=== PATIENT | male | born 1950 | race Caucasian/White ===

== ENCOUNTER 2019-07-14 15:42 | IRF | payer MEDICARE, OTHER, SELFPAY ==
[2019-07-14 15:45] VITALS: BP 135/48; PULSE 82; RESP 18; TEMP 37.1; O2SAT 100; BMI 28.8
[2019-07-14 17:01] LABS: Glucose Point of Care 164 (65-105)
--- NOTE | 2019-07-14 18:43 | ADMGEN ---
Arrived at 1545 via ambulance. This patient, Nahun Soto, was admitted to [facility] Room 220-01. Patient/family oriented to hospital policies and general routines including ID bracelet, bed and alarms, visiting hours, pain management, procedures, bathroom and other care routines, personal items, smoking policy, room service/diet, and visiting hours. Valuables list has been completed. Information on how to activate the Rapid Response Team has been discussed. Patient/Family are encouraged to report perceived risks to care and to ask questions if they do not understand what they are told or what they should do.
[2019-07-14 19:36] VITALS: BMI 28.8
[2019-07-14] MEDS: ATORVASTATIN 20 MG TABLET PO (20:47)
[2019-07-14] MEDS: INSULIN GLARGINE (*BKC) 100 UNITS/ML 8 UNITS SUB-Q (20:47)
[2019-07-14] MEDS: ASPIRIN 81 MG ENTERIC TABLET PO (20:47)
[2019-07-14 21:14] LABS: Glucose Point of Care 166 (65-105)
[2019-07-14 21:42] VITALS: BP 125/57; PULSE 67; RESP 20; TEMP 36.9; O2SAT 100
[2019-07-14] MEDS: ACETAMINOPHEN 325 MG TABLET 650 MG PO (21:59)
[2019-07-15 04:59] LABS: Basophils Percent Auto 0.4 % (0.2-1.2); Eosinophils Absolute Auto 0.2 K/mm3 (0-0.3); Eosinophils Percent Auto 2.5 % (0-4.4); Hematocrit 26.8 % (42.0-52.0); Hemoglobin 8.3 g/dL (14.0-18.0); Immature Granulocyte Absolute 0.16 K/mm3 (0.00-0.031); Immature Granulocyte Percent A 2.1 % (0-0.5); Lymphocytes Absolute Auto 0.65 K/mm3 (0.9-3.2); Lymphocytes Percent Auto 8.4 % (18.3-44.2); Mean Corpuscular Hemoglobin 28.3 pg (26-34); Mean Corpuscular Volume 91.5 fl (80-100); Mean Platelet Volume 10.5 fl (7.4-10.4); Monocytes Absolute Auto 0.9 K/mm3 (0.1-0.6); Monocytes Percent Auto 11.3 % (2.6-8.5); Neutrophils Absolute Auto 5.8 K/mm3 (1.3-6.7); Neutrophils Percent Auto 75.3 % (45.5-73.1); Platelet Count Result 221 k/mm3 (150-375); Red Blood Count 2.93 M/mm3 (4.6-6.20); Red Cell Distribution Width 16.4 % (11.5-14.5); White Blood Count 7.7 K/mm3 (4.5-10.0)
[2019-07-15 05:18] LABS: Blood Urea Nitrogen 38 mg/dL (9-20); Calcium 8.1 mg/dL (8.4-10.2); Carbon Dioxide 32 mmol/L (22-30); Chloride 90 mmol/L (98-107); Estimated CRCL calculation 9 ml/min; Estimated Glomerular Filt Rate 7; Glucose 128 mg/dL (75-110); Potassium 4.4 mmol/L (3.4-5.0); Sodium 134 mmol/L (137-145)
[2019-07-15 06:00] VITALS: BP 126/54; PULSE 64; RESP 16; TEMP 36.5; O2SAT 99
[2019-07-15] MEDS: FUROSEMIDE 80 MG TABLET 160 MG PO ×3 (06:07→17:42)
[2019-07-15] MEDS: ACETAMINOPHEN 325 MG TABLET 650 MG PO ×4 (06:40→23:01)
[2019-07-15 06:51] LABS: Glucose Point of Care 125 (65-105)
[2019-07-15 07:03] LABS: Hemoglobin A1C 6.9 % (<5.7)
[2019-07-15] MEDS: CALCIUM CARBONATE (TUMS) 500 MG (200 MG ELEMENTAL) PO ×3 (09:02→17:40)
[2019-07-15] MEDS: INSULIN ASPART (*BKC) 100 UNITS/ML SUB-Q ×3 (09:03→17:40)
[2019-07-15] MEDS: SEVELAMER CARBONATE 800 MG TABLET PO ×3 (09:05→17:42)
[2019-07-15] MEDS: allopurinoL 100 MG TABLET PO (09:05)
[2019-07-15 09:06] VITALS: PULSE 64
[2019-07-15] MEDS: AMLODIPINE BESYLATE 5 MG TABLET 10 MG PO (09:06)
[2019-07-15] MEDS: CHOLECALCIFEROL 1,000 UNIT TABLET 1000 UNITS PO (09:06)
[2019-07-15] MEDS: CYANOCOBALAMIN 1,000 MCG TABLET 1000 MCG PO (09:06)
[2019-07-15] MEDS: lisinopriL 5 MG TABLET PO (09:06)
[2019-07-15] MEDS: METOPROLOL SUCCINATE EXT REL 100 MG TABCR 200 MG PO (09:06)
[2019-07-15] MEDS: PYRIDOXINE HCL 50 MG TABLET 100 MG PO (09:07)
[2019-07-15] MEDS: VITAMIN E 400 UNIT CAPSULE PO (09:07)
[2019-07-15] MEDS: PREGABALIN 50 MG CAPSULE 100 MG PO ×3 (09:10→17:41)
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
[2019-07-15 12:10] LABS: Glucose Point of Care 128 (65-105)
[2019-07-15] MEDS: HEPARIN SODIUM 5,000 UNITS/ML VIAL 5000 UNITS SUB-Q ×2 (12:56→20:30)
[2019-07-15 13:57] LABS: Iron 29 ug/dL (49-181); Percent Iron Saturation 13 % (20-50)
[2019-07-15 14:00] VITALS: BP 130/50; PULSE 66; RESP 20; TEMP 36.6; O2SAT 100
[2019-07-15 14:18] VITALS: BMI 28.8
--- NOTE | 2019-07-15 16:14 | PCCCNOTE ---
On 07/15/19, the student, [ Darrin Polanco ], provided care and completed [facility] documentation on this patient. I have reviewed the student's documentation and agree with the findings.
[2019-07-15 17:11] LABS: Glucose Point of Care 123 (65-105)
[2019-07-15] MEDS: MELATONIN 5 MG TABLET PO (20:30)
[2019-07-15] MEDS: ATORVASTATIN 20 MG TABLET PO (20:30)
[2019-07-15] MEDS: ASPIRIN 81 MG ENTERIC TABLET PO (20:30)
[2019-07-15] MEDS: INSULIN GLARGINE (*BKC) 100 UNITS/ML 8 UNITS SUB-Q (20:34)
[2019-07-15 20:51] LABS: Glucose Point of Care 130 (65-105)
[2019-07-15 21:46] VITALS: BP 132/50; PULSE 70; RESP 18; TEMP 36.9; O2SAT 98
[2019-07-16] VITALS (22 sets, daily range): BP systolic 126–156; BP diastolic 49–68; PULSE 59–77; RESP 16–20; TEMP 36.2–37.1; O2SAT 93–98
[2019-07-16 04:59] LABS: Basophils Percent Auto 0.5 % (0.2-1.2); Eosinophils Absolute Auto 0.2 K/mm3 (0-0.3); Eosinophils Percent Auto 2.9 % (0-4.4); Hematocrit 26.9 % (42.0-52.0); Hemoglobin 8.2 g/dL (14.0-18.0); Immature Granulocyte Percent A 2.5 % (0-0.5); Lymphocytes Absolute Auto 0.84 K/mm3 (0.9-3.2); Lymphocytes Percent Auto 10.3 % (18.3-44.2); Mean Corpuscular HGB Conc 30.5 g/dl (32-36); Mean Corpuscular Hemoglobin 28.3 pg (26-34); Mean Corpuscular Volume 92.8 fl (80-100); Mean Platelet Volume 10.7 fl (7.4-10.4); Monocytes Absolute Auto 0.8 K/mm3 (0.1-0.6); Monocytes Percent Auto 9.7 % (2.6-8.5); Neutrophils Percent Auto 74.1 % (45.5-73.1); Platelet Count Result 232 k/mm3 (150-375); Red Cell Distribution Width 16.3 % (11.5-14.5); White Blood Count 8.1 K/mm3 (4.5-10.0)
[2019-07-16 05:41] LABS: Hepatitis B Surface Antigen Negative (Negative)
[2019-07-16 05:46] LABS: Albumin Level 3.4 g/dL (3.5-5.1); Blood Urea Nitrogen 55 mg/dL (9-20); Calcium 8.5 mg/dL (8.4-10.2); Carbon Dioxide 28 mmol/L (22-30); Chloride 89 mmol/L (98-107); Estimated CRCL calculation 8 ml/min; Estimated Glomerular Filt Rate 6; Glucose 125 mg/dL (75-110); Phosphorus 7.6 mg/dL (2.5-4.5); Potassium 4.3 mmol/L (3.4-5.0); Sodium 134 mmol/L (137-145)
[2019-07-16 06:11] LABS: Glucose Point of Care 119 (65-105)
[2019-07-16 06:12] LABS: Hepatitis B Surface Anti Res Positive
[2019-07-16] MEDS: ACETAMINOPHEN 325 MG TABLET 650 MG PO ×2 (07:21→13:11)
[2019-07-16] MEDS: AMLODIPINE BESYLATE 5 MG TABLET 10 MG PO (08:36)
[2019-07-16] MEDS: CYANOCOBALAMIN 1,000 MCG TABLET 1000 MCG PO (08:37)
[2019-07-16] MEDS: CALCIUM CARBONATE (TUMS) 500 MG (200 MG ELEMENTAL) PO ×3 (08:37→18:49)
[2019-07-16] MEDS: PYRIDOXINE HCL 50 MG TABLET 100 MG PO (08:37)
[2019-07-16] MEDS: SEVELAMER CARBONATE 800 MG TABLET PO ×3 (08:37→18:46)
[2019-07-16] MEDS: lisinopriL 5 MG TABLET PO (08:37)
[2019-07-16] MEDS: METOPROLOL SUCCINATE EXT REL 100 MG TABCR 200 MG PO (08:37)
[2019-07-16] MEDS: VITAMIN E 400 UNIT CAPSULE PO (08:37)
[2019-07-16] MEDS: PREGABALIN 50 MG CAPSULE 100 MG PO ×3 (08:37→18:45)
[2019-07-16] MEDS: allopurinoL 100 MG TABLET PO (08:37)
[2019-07-16] MEDS: CHOLECALCIFEROL 1,000 UNIT TABLET 1000 UNITS PO (08:38)
[2019-07-16] MEDS: INSULIN ASPART (*BKC) 100 UNITS/ML SUB-Q ×3 (08:40→18:48)
[2019-07-16] MEDS: HEPARIN SODIUM 5,000 UNITS/ML VIAL 5000 UNITS SUB-Q ×2 (09:00→20:04)
[2019-07-16 11:25] LABS: Glucose Point of Care 173 (65-105)
--- NOTE | 2019-07-16 13:17 | RPD ---
INDIVIDUALIZED PLAN OF CARE FOR Nahun Soto Brief Synthesis of Pre-Admission Screen, Post-Admission Evaluation and Therapy Evaluations: The patient presents to rehab with gangrenous right foot. Comorbidities include status post right below-knee amputation, end-stage renal disease on hemodialysis, hypertension, hyperlipidemia, anemia of chronic disease, acute postoperative pain. The patient requires physician services for medical oversight, management of post-op complications in the setting of present comorbidities, management diabetes mellitus, end-stage renal disease and pain management. Post-op complications have included acute blood loss anemia and postoperative pain. The patient requires nursing services for anticoagulation therapy, diabetes training, DVT prophylactics, infection protection, medication management and education, pressure relief, and wound care. Deficits include:ADLs, Balance, Endurance, Mobility, Pain Management, ROM, Safety, Strength,Transfers Video Rental Clerk/Case Management for: Discharge Planning and Patient/Family Counseling Physical Therapy: 5 days per week for 90 minutes. Treatments may include: Therapeutic Exercise, Gait Training, Neuromuscular Re-education, Transfer Training, Community Reintegration, Bed Mobility, Patient/Family Education, Wheelchair Mobility Group Therapy/Concurrent Therapy Rationales: -Improve attention span during functional activities in a distracted environment. -Enhance problem solving and/or adequate judgment skills during functional activities in a distracted environment. -Promote increased safety awareness in a distracted environment to reduce fall risk with functional tasks, transfers, and ambulation to allow a more safe, self-sufficient return to the home environment. -Improve dynamic balance skills to promote safety and independence with functional activities in a distracted environment for maximum gain. Occupational Therapy: 5 days per week for 90 minutes. Treatments may include: Therapeutic Exercise, Therapeutic Activity, Cognitive Training, Self-Care Transfer Training, Community Reintegration, Home Management, Patient/Family Education, Wheelchair Mobility Training, Energy Conservation Training Group Therapy/Concurrent Therapy Rationales: -Allow therapist to observe and teach generalization and carry-over of skills learned in individual therapy. -Enhance problem solving and sequencing skills during therapeutic activities in a distracted environment. -Promote increased safety awareness in a realistic setting to reduce fall risk with functional tasks due to visual and verbal distractions. -Increase functional level with ADLs, ADL transfers and use of adaptive equipment through therapeutic activities with others while promoting safety to allow a more safe, self-sufficient return home. Medical Prognosis: Good Anticipated Length of Stay: 12 days Rehab Goals: Oral Hygiene Goal: 06-Independent Toileting Hygiene Goal: 04-Supervision or Touching Assistance Shower/Bathe Self Goal: 06-Independent Upper Body Dressing Goal: 06-Independent Lower Body Dressing Goal: 04-Supervision or Touching Assistance Putting On/Taking Off Footwear Goal: 09-Not Applicable Rolling Left and Right Goal: 06-Independent Sit to Lying Goal: 06-Independent Lying to Sitting on Side of Bed Goal: 06-Independent Sit to Stand Goal: 04-Supervision or Touching Assistance Chair/Kpe-wo-Hsfeq Transfer Goal: 06-Independent Toilet Transfer Goal: 06-Independent Car Transfer Goal: 05-Setup or Clean Up Assistance Walk 10' Goal: 09-Not Applicable Walk 50' with Two Turns Goal: 09-Not Applicable Walk 150' Goal: 09-Not Applicable Walk 10' on Uneven Surface Goal: 09-Not Applicable 1 Step (Curb) Goal: 09-Not Applicable 4 Steps Goal: 09-Not Applicable 12 Steps Goal Score: 09-Not Applicable Picking Up Object Goal: 04-Supervision or Touching Assistance Wheel 50' with Two Turns Score: 06-Independent Wheel 150' Goal: 06-Independent Anticipa
--- NOTE | 2019-07-16 13:31 | WPDNEURORHBP ---
Subjective Date/time seen: 07/16/19 13:31 Interval history: patient is here because of right BKA and has already had left BKA for which he has a prosthesis he is doing fairly well in over rehab and stable making progress does not have any complaints per like headache chest pain shortness of breath nausea vomiting etc Review of Systems Review of Systems: All systems reviewed & are unremarkable except as noted in HPI and below Exam Const: General: comfortable and no acute distress HENMT: Other: normal exam Eyes: General: appearance normal, both eyes and all related structures Neck: Neck: supple and no JVD Resp: Effort & Inspection: normal respiratory effort Auscultation: clear to auscultation bilaterally Cardio: Rate: regular rate Rhythm: regular rhythm GI: GI Palp: Yes Soft to palpation Auscultation: normal bowel sounds Skin: General skin exam: normal color and no rashes or lesions noted Neuro: Other: patient overall status is improving the BKA site on the right is clean no significant drainage is noted left-sided prosthesis is working fairly well he does have evidence of peripheral neuropathy even in the upper extremities needs stents in the all activities of daily Extrem: Other: right BKA and Old BKA left using prosthesis Psych: Mental Status: mental status grossly normal Objective Data Vital Signs Vital Signs: Vital Signs - 24 hr 07/15/19 14:00 07/15/19 21:46 07/16/19 06:00 Temperature 36.6 C 36.9 C 36.2 C L Pulse Rate 66 70 62 Respiratory Rate 20 18 18 Blood Pressure 130/50 L 132/50 L 126/49 L Pulse Oximetry 100 98 94 07/16/19 08:37 Temperature Pulse Rate 62 Respiratory Rate Blood Pressure Pulse Oximetry Intake/Output Intake/Output: Intake & Output 07/13/19 07/14/19 07/15/19 07/16/19 23:59 23:59 23:59 23:59 Intake Total 240 720 600 Balance 240 720 600 Meds/Results Medications: Active Medications Generic Name Dose Route Start Last Admin Trade Name Freq PRN Reason Stop Dose Admin Acetaminophen 650 mg 07/14/19 18:22 07/16/19 13:11 Tylenol Tablet PO 650 mg Q4H PRN Administration Pain (Scale Score 1-3) Hydrocodone Bitart/Acetaminophen 1 tab 07/14/19 18:22 [place] 5-325 Mg PO Q4H PRN Pain, Moderate Allopurinol 100 mg 07/15/19 09:00 07/16/19 08:37 Zyloprim PO 100 mg DAILY EDUARD Administration Amlodipine Besylate 10 mg 07/15/19 09:00 07/16/19 08:36 Norvasc PO 10 mg DAILY EDUARD Administration Aspirin 81 mg 07/14/19 21:00 07/15/19 20:30 Aspirin Ec PO 81 mg HS EDUARD Administration Atorvastatin Calcium 20 mg 07/14/19 21:00 07/15/19 20:30 Lipitor PO 20 mg HS EDUARD Administration Calcium Carbonate 200 mg 07/15/19 08:00 07/16/19 11:51 Tums PO 200 mg TIDWM EDUARD Administration Cyanocobalamin 1,000 mcg 07/15/19 09:00 07/16/19 08:37 Vitamin B-12 Tab PO 1,000 mcg DAILY EDUARD Administration Dextrose 12.5 gm 07/14/19 16:07 Dextrose 50% Syringe IV PUSH PRN PRN Hypoglycemia Protocol Furosemide 160 mg 07/15/19 06:00 07/15/19 17:42 Lasix Tablet PO 160 mg TuTh@0600,1200,1800 EDUARD Administration Glucagon 1 mg 07/14/19 16:07 Glucagon For Inj IM PRN PRN Hypoglycemia Protocol Glucose 15 gm 07/14/19 16:07 Glutose 15 PO PRN PRN Hypoglycemia Protocol Heparin Sodium (Porcine) 5,000 units 07/15/19 11:30 07/15/19 20:30 Heparin Sodium SUB-Q 5,000 units Q12HR EDUARD Administration Dextrose 1,000 mls @ 100 mls/hr 07/14/19 16:07 Dextrose 5% 1,000 Ml IVPB PRN PRN Hypoglycemia Protocol Insulin Aspart 2 units 07/15/19 08:00 07/16/19 11:52 Novolog SUB-Q 2 units TIDWM EDUARD Administration Insulin Aspart 2 - 5 units 07/14/19 17:00 07/16/19 11:52 Novolog SUB-Q Not Given TIDWM [facility] Protocol Insulin Glargine 8 units 07/14/19 21:00 07/15/19 20:34 Lantus SUB-Q 8 units HS
[2019-07-16] MEDS: EPOETIN ALFA 10,000 UNITS/ML VIAL 10000 UNITS IV PUSH (16:50)
--- NOTE | 2019-07-16 17:30 | PM.PNNEP ---
Progress Note: A&P Assessment and Plan (1) ESRD (end stage renal disease): Code(s): N18.6 - End stage renal disease Status: Acute Assessment and Plan: The patient is on dialysis now. We will remove the 2L. (2) Essential (primary) hypertension: Code(s): I10 - Essential (primary) hypertension Status: Acute Assessment and Plan: Blood pressure is under good control. (3) Erythropoietin deficiency anemia: Code(s): D63.1 - Anemia in chronic kidney disease Status: Acute Assessment and Plan: Hemoglobin is 8.3. Continue EPO 10,000. (4) Peripheral vascular disease: Code(s): I73.9 - Peripheral vascular disease, unspecified Status: Acute Assessment and Plan: Status post ytudj-weg-tvsl amputation. Subjective Date/time seen: 07/16/19 17:30 Interval history: Patient is feeling okay. No chest pain or shortness of breath. He is on dialysis right now and tolerating it well. His blood pressure is about 140. We are removing about 2L head of fluid. He was seen at 4:30 p.m. Review of Systems Cardiovascular: Cardiovascular: Reports no additional cardiovascular complaints Respiratory: Respiratory: Reports no additional respiratory complaints Gastrointestinal: Gastrointestinal: Reports no additional gastrointestinal complaints Genitourinary: Genitourinary: Reports no additional male genitourinary complaints Exam Narrative: Exam Narrative: Well developed well-nourished in no acute distress Lungs clear Heart regular without rub Abdomen bowel sounds positive soft nontender Extremities no edema Skin no rash Objective Data Vital Signs Vital Signs: Vital Signs - 24 hr 07/15/19 21:46 07/16/19 06:00 07/16/19 08:37 Temperature 36.9 C 36.2 C L Pulse Rate 70 62 62 Respiratory Rate 18 18 Blood Pressure 132/50 L 126/49 L Pulse Oximetry 98 94 07/16/19 14:00 07/16/19 14:31 07/16/19 14:44 Temperature 36.4 C 36.6 C Pulse Rate 68 64 59 L Respiratory Rate 20 18 Blood Pressure 128/56 L 140/65 142/59 H Pulse Oximetry 98 07/16/19 15:00 07/16/19 15:15 07/16/19 15:30 Temperature Pulse Rate 60 61 59 L Respiratory Rate Blood Pressure 138/63 136/62 138/63 Pulse Oximetry 07/16/19 15:45 07/16/19 16:00 07/16/19 16:15 Temperature Pulse Rate 59 L 60 62 Respiratory Rate Blood Pressure 138/61 144/63 H 139/62 Pulse Oximetry 07/16/19 16:30 07/16/19 16:45 07/16/19 17:00 Temperature Pulse Rate 63 64 61 Respiratory Rate Blood Pressure 144/68 H 151/68 H 155/68 H Pulse Oximetry 07/16/19 17:15 Temperature Pulse Rate 64 Respiratory Rate Blood Pressure 154/62 H Pulse Oximetry Intake/Output Intake/Output: Intake & Output 07/13/19 07/14/19 07/15/19 07/16/19 23:59 23:59 23:59 23:59 Intake Total 240 720 600 Balance 240 720 600 Meds/Results Medications: Active Medications Generic Name Dose Route Start Last Admin Trade Name Freq PRN Reason Stop Dose Admin Acetaminophen 650 mg 07/14/19 18:22 07/16/19 13:11 Tylenol Tablet PO 650 mg Q4H PRN Administration Pain (Scale Score 1-3) Hydrocodone Bitart/Acetaminophen 1 tab 07/14/19 18:22 [place] 5-325 Mg PO Q4H PRN Pain, Moderate Allopurinol 100 mg 07/15/19 09:00 07/16/19 08:37 Zyloprim PO 100 mg DAILY EDUARD Administration Amlodipine Besylate 10 mg 07/15/19 09:00 07/16/19 08:36 Norvasc PO 10 mg DAILY EDUARD Administration Aspirin 81 mg 07/14/19 21:00 07/15/19 20:30 Aspirin Ec PO 81 mg HS EDUARD Administration Atorvastatin Calcium 20 mg 07/14/19 21:00 07/15/19 20:30 Lipitor PO 20 mg HS EDUARD Administration Calcium Carbonate 200 mg 07/15/19 08:00 07/16/19 11:51 Tums PO 200 mg TIDWM EDUARD Administration Cyanocobalamin 1,000 mcg 07/15/19 09:00 07/16/19 08:37 Vitamin B-12 Tab PO 1,000 mcg DAILY EDUARD Administration Dextrose 12.5 gm 07/14/19 16:07
[2019-07-16 18:51] LABS: Glucose Point of Care 101 (65-105)
[2019-07-16] MEDS: ASPIRIN 81 MG ENTERIC TABLET PO (20:04)
[2019-07-16] MEDS: ATORVASTATIN 20 MG TABLET PO (20:04)
[2019-07-16] MEDS: MELATONIN 5 MG TABLET PO (20:04)
[2019-07-16] MEDS: INSULIN GLARGINE (*BKC) 100 UNITS/ML 8 UNITS SUB-Q (20:31)
[2019-07-16 20:39] LABS: Glucose Point of Care 195 (65-105)
[2019-07-17 04:53] LABS: Basophils Percent Auto 0.5 % (0.2-1.2); Eosinophils Absolute Auto 0.2 K/mm3 (0-0.3); Eosinophils Percent Auto 2.1 % (0-4.4); Hematocrit 26.5 % (42.0-52.0); Hemoglobin 8.2 g/dL (14.0-18.0); Immature Granulocyte Absolute 0.31 K/mm3 (0.00-0.031); Immature Granulocyte Percent A 3.8 % (0-0.5); Lymphocytes Absolute Auto 0.75 K/mm3 (0.9-3.2); Lymphocytes Percent Auto 9.2 % (18.3-44.2); Mean Corpuscular HGB Conc 30.9 g/dl (32-36); Mean Corpuscular Hemoglobin 28.4 pg (26-34); Mean Corpuscular Volume 91.7 fl (80-100); Mean Platelet Volume 9.9 fl (7.4-10.4); Monocytes Absolute Auto 0.7 K/mm3 (0.1-0.6); Monocytes Percent Auto 9.1 % (2.6-8.5); Neutrophils Absolute Auto 6.1 K/mm3 (1.3-6.7); Neutrophils Percent Auto 75.3 % (45.5-73.1); Platelet Count Result 224 k/mm3 (150-375); Red Blood Count 2.89 M/mm3 (4.6-6.20); Red Cell Distribution Width 16.1 % (11.5-14.5); White Blood Count 8.1 K/mm3 (4.5-10.0)
[2019-07-17 05:18] LABS: Albumin Level 3.5 g/dL (3.5-5.1); Blood Urea Nitrogen 28 mg/dL (9-20); Calcium 8.7 mg/dL (8.4-10.2); Carbon Dioxide 32 mmol/L (22-30); Chloride 92 mmol/L (98-107); Estimated CRCL calculation 12 ml/min; Estimated Glomerular Filt Rate 10; Glucose 137 mg/dL (75-110); Phosphorus 4.8 mg/dL (2.5-4.5); Potassium 4.3 mmol/L (3.4-5.0); Sodium 135 mmol/L (137-145)
[2019-07-17] MEDS: FUROSEMIDE 80 MG TABLET 160 MG PO ×3 (05:48→17:01)
[2019-07-17 06:00] VITALS: BP 148/62; PULSE 72; RESP 18; TEMP 36.8; O2SAT 98
[2019-07-17 06:14] LABS: Glucose Point of Care 130 (65-105)
--- NOTE | 2019-07-17 07:53 | PCPTNOTE ---
Received orders for stump turnstile attendant and stump protector. physical therapist contacted oyster shucker.
[2019-07-17] MEDS: AMLODIPINE BESYLATE 5 MG TABLET 10 MG PO (09:14)
[2019-07-17] MEDS: SEVELAMER CARBONATE 800 MG TABLET PO ×2 (09:14→12:04)
[2019-07-17] MEDS: PREGABALIN 50 MG CAPSULE 100 MG PO ×3 (09:14→17:01)
[2019-07-17] MEDS: lisinopriL 5 MG TABLET PO (09:14)
[2019-07-17] MEDS: VITAMIN E 400 UNIT CAPSULE PO (09:14)
[2019-07-17] MEDS: allopurinoL 100 MG TABLET PO (09:14)
[2019-07-17] MEDS: HEPARIN SODIUM 5,000 UNITS/ML VIAL 5000 UNITS SUB-Q ×2 (09:14→20:11)
[2019-07-17 09:15] VITALS: PULSE 72
[2019-07-17] MEDS: CALCIUM CARBONATE (TUMS) 500 MG (200 MG ELEMENTAL) PO ×3 (09:15→17:01)
[2019-07-17] MEDS: METOPROLOL SUCCINATE EXT REL 100 MG TABCR 200 MG PO (09:15)
[2019-07-17] MEDS: PYRIDOXINE HCL 50 MG TABLET 100 MG PO (09:15)
[2019-07-17] MEDS: CHOLECALCIFEROL 1,000 UNIT TABLET 1000 UNITS PO (09:15)
[2019-07-17] MEDS: INSULIN ASPART (*BKC) 100 UNITS/ML SUB-Q ×3 (09:15→16:59)
[2019-07-17] MEDS: CYANOCOBALAMIN 1,000 MCG TABLET 1000 MCG PO (09:15)
--- NOTE | 2019-07-17 11:55 | WPDNEURORHBP ---
Subjective Date/time seen: 07/17/19 11:55 Interval history: patient with the right BKA and overt left BKA with which she has a prosthesis doing fairly well and moving in the therapy days a little drainage on the right below the amputation stump no sign of infection or wound dehiscence Patient denies any headache chest pain shortness of breath fever or chills Review of Systems Review of Systems: All systems reviewed & are unremarkable except as noted in HPI and below Exam Const: General: comfortable and no acute distress HENMT: General nose exam: Normal nares present Mouth: Yes moist mucous membranes Eyes: General: appearance normal, both eyes and all related structures Neck: Neck: supple and no JVD Resp: Effort & Inspection: normal respiratory effort Auscultation: clear to auscultation bilaterally Cardio: Rate: regular rate Rhythm: regular rhythm GI: GI Palp: Yes Soft to palpation Auscultation: normal bowel sounds Skin: General skin exam: normal color and no rashes or lesions noted Other: the stump of of the right BKA is clean and healthy no significant drainage noted and no sign of infection Neuro: Other: patient's because of having bilateral BKA is handicapped however doing fairly well and improving in the physical therapy and occupational therapy activities of daily living he does have evidence of peripheral neuropathy in the upper extremities but doing well Extrem: Other: bilateral BKA the right when is the new 1 Objective Data Vital Signs Vital Signs: Vital Signs - 24 hr 07/16/19 14:00 07/16/19 14:31 07/16/19 14:44 Temperature 36.4 C 36.6 C Pulse Rate 68 64 59 L Respiratory Rate 20 18 Blood Pressure 128/56 L 140/65 142/59 H Pulse Oximetry 98 07/16/19 15:00 07/16/19 15:15 07/16/19 15:30 Temperature Pulse Rate 60 61 59 L Respiratory Rate Blood Pressure 138/63 136/62 138/63 Pulse Oximetry 07/16/19 15:45 07/16/19 16:00 07/16/19 16:15 Temperature Pulse Rate 59 L 60 62 Respiratory Rate Blood Pressure 138/61 144/63 H 139/62 Pulse Oximetry 07/16/19 16:30 07/16/19 16:45 07/16/19 17:00 Temperature Pulse Rate 63 64 61 Respiratory Rate Blood Pressure 144/68 H 151/68 H 155/68 H Pulse Oximetry 07/16/19 17:15 07/16/19 17:30 07/16/19 17:45 Temperature Pulse Rate 64 64 62 Respiratory Rate Blood Pressure 154/62 H 154/67 H 155/68 H Pulse Oximetry 07/16/19 18:00 07/16/19 18:14 07/16/19 18:20 Temperature 36.6 C Pulse Rate 62 63 64 Respiratory Rate 16 Blood Pressure 147/66 H 149/58 H 156/58 H Pulse Oximetry 07/16/19 22:00 07/17/19 06:00 07/17/19 09:15 Temperature 37.1 C 36.8 C Pulse Rate 77 72 72 Respiratory Rate 18 18 Blood Pressure 143/54 H 148/62 H Pulse Oximetry 93 98 Intake/Output Intake/Output: Intake & Output 07/14/19 07/15/19 07/16/19 07/17/19 23:59 23:59 23:59 23:59 Intake Total 240 720 600 240 Output Total 2000 Balance 240 720 -1400 240 Meds/Results Medications: Active Medications Generic Name Dose Route Start Last Admin Trade Name Freq PRN Reason Stop Dose Admin Acetaminophen 650 mg 07/14/19 18:22 07/16/19 13:11 Tylenol Tablet PO 650 mg Q4H PRN Administration Pain (Scale Score 1-3) Hydrocodone Bitart/Acetaminophen 1 tab 07/14/19 18:22 07/17/19 05:50 [place] 5-325 Mg PO 1 tab Q4H PRN Administration Pain, Moderate Allopurinol 100 mg 07/15/19 09:00 07/17/19 09:14 Zyloprim PO 100 mg DAILY EDUARD Administration Amlodipine Besylate 10 mg 07/15/19 09:00 07/17/19 09:14 Norvasc PO 10 mg DAILY EDUARD Administration Aspirin 81 mg 07/14/19 21:00 07/16/19 20:04 Aspirin Ec PO 81 mg HS EDUARD Administration Atorvastatin Calcium 20 mg 07/14/19 21:00 07/16/19 20:04 Lipitor PO 20 mg HS EDUARD Administration Calcium Carbonate 200 mg 07/15/19 08:00 07/17/19 09:15 Tums PO 200 mg TIDWM EDUARD Administration Cyanocobalamin 1,000
[2019-07-17] MEDS: ACETAMINOPHEN 325 MG TABLET 650 MG PO (12:52)
--- NOTE | 2019-07-17 13:14 | PCPTNOTE ---
Nahun Soto was evaluated for a slide board on 07/17/2019 by this physical therapist assistant plant control operator The slide board will resolve patient's mobility limitations and will be used for ADL's within the home. The patient can safely use the slide board. ?The slide board will resolve the patient?s mobility deficits, including non weight bearing right lower extremity, decreased balance and bilateral lower extremity below knee amputee.
[2019-07-17 14:00] VITALS: BP 118/52; PULSE 64; RESP 18; TEMP 36.4; O2SAT 96
[2019-07-17 16:29] LABS: Glucose Point of Care 168 (65-105)
[2019-07-17 16:38] LABS: Glucose Point of Care 189 (65-105)
[2019-07-17] MEDS: MELATONIN 5 MG TABLET PO (20:11)
[2019-07-17] MEDS: ATORVASTATIN 20 MG TABLET PO (20:11)
[2019-07-17] MEDS: ASPIRIN 81 MG ENTERIC TABLET PO (20:11)
[2019-07-17] MEDS: INSULIN GLARGINE (*BKC) 100 UNITS/ML 8 UNITS SUB-Q (20:48)
[2019-07-17 21:42] LABS: Glucose Point of Care 213 (65-105)
[2019-07-17 22:00] VITALS: BP 133/59; PULSE 68; RESP 20; TEMP 36.5; O2SAT 92
[2019-07-18] VITALS (24 sets, daily range): BP systolic 115–183; BP diastolic 47–70; PULSE 57–67; RESP 16–20; TEMP 36.4–37.1; O2SAT 94–98
[2019-07-18 06:31] LABS: Glucose Point of Care 104 (65-105)
[2019-07-18] MEDS: INSULIN ASPART (*BKC) 100 UNITS/ML SUB-Q ×3 (09:10→19:04)
[2019-07-18] MEDS: SEVELAMER CARBONATE 800 MG TABLET PO ×3 (09:10→19:05)
[2019-07-18] MEDS: CALCIUM CARBONATE (TUMS) 500 MG (200 MG ELEMENTAL) PO ×3 (09:10→19:04)
[2019-07-18] MEDS: AMLODIPINE BESYLATE 5 MG TABLET 10 MG PO (09:11)
[2019-07-18] MEDS: allopurinoL 100 MG TABLET PO (09:11)
[2019-07-18] MEDS: HEPARIN SODIUM 5,000 UNITS/ML VIAL 5000 UNITS SUB-Q ×2 (09:11→20:37)
[2019-07-18] MEDS: CHOLECALCIFEROL 1,000 UNIT TABLET 1000 UNITS PO (09:11)
[2019-07-18] MEDS: CYANOCOBALAMIN 1,000 MCG TABLET 1000 MCG PO (09:11)
[2019-07-18] MEDS: METOPROLOL SUCCINATE EXT REL 100 MG TABCR 200 MG PO (09:12)
[2019-07-18] MEDS: VITAMIN E 400 UNIT CAPSULE PO (09:12)
[2019-07-18] MEDS: lisinopriL 5 MG TABLET PO (09:12)
[2019-07-18] MEDS: PYRIDOXINE HCL 50 MG TABLET 100 MG PO (09:12)
[2019-07-18] MEDS: PREGABALIN 50 MG CAPSULE 100 MG PO ×3 (09:13→19:04)
[2019-07-18 12:15] LABS: Glucose Point of Care 81 (65-105)
--- NOTE | 2019-07-18 13:05 | WPDNEURORHBP ---
Subjective Date/time seen: 07/18/19 13:05 Interval history: patient is doing fairly well and moving forward denies any complaints of chest pain shortness of breath nausea vomiting having had the previous BKA he is able to tolerate the right BKA which is new much better than otherwise Review of Systems Review of Systems: All systems reviewed & are unremarkable except as noted in HPI and below Exam Const: General: comfortable and no acute distress HENMT: General nose exam: Normal nares present Mouth: Yes moist mucous membranes Eyes: General: appearance normal, both eyes and all related structures Neck: Neck: supple and no JVD Resp: Effort & Inspection: normal respiratory effort Auscultation: clear to auscultation bilaterally Cardio: Rate: regular rate Rhythm: regular rhythm GI: GI Palp: Yes Soft to palpation Auscultation: normal bowel sounds Skin: General skin exam: normal color and no rashes or lesions noted Neuro: Other: does have evidence of peripheral neuropathy and peripheral vascular disease the new BKA is doing fairly well and he is engage in therapy otherwise no lateralizing focal motor deficits noted Extrem: Other: bilateral BKA along with the evidence of the peripheral neuropathy and also peripheral vascular disease Psych: Mental Status: mental status grossly normal Objective Data Vital Signs Vital Signs: Vital Signs - 24 hr 07/17/19 14:00 07/17/19 22:00 07/18/19 06:00 Temperature 36.4 C L 36.5 C 36.4 C L Pulse Rate 64 68 67 Respiratory Rate 18 20 16 Blood Pressure 118/52 L 133/59 L 157/69 H Pulse Oximetry 96 92 98 07/18/19 09:12 Temperature Pulse Rate 67 Respiratory Rate Blood Pressure Pulse Oximetry Intake/Output Intake/Output: Intake & Output 07/15/19 07/16/19 07/17/19 07/18/19 23:59 23:59 23:59 23:59 Intake Total 720 600 480 200 Output Total 2000 Balance 720 -1400 480 200 Meds/Results Medications: Active Medications Generic Name Dose Route Start Last Admin Trade Name Freq PRN Reason Stop Dose Admin Acetaminophen 650 mg 07/14/19 18:22 07/17/19 12:52 Tylenol Tablet PO 650 mg Q4H PRN Administration Pain (Scale Score 1-3) Hydrocodone Bitart/Acetaminophen 1 tab 07/14/19 18:22 07/18/19 09:24 [place] 5-325 Mg PO 1 tab Q4H PRN Administration Pain, Moderate Allopurinol 100 mg 07/15/19 09:00 07/18/19 09:11 Zyloprim PO 100 mg DAILY EDUARD Administration Amlodipine Besylate 10 mg 07/15/19 09:00 07/18/19 09:11 Norvasc PO 10 mg DAILY EDUARD Administration Aspirin 81 mg 07/14/19 21:00 07/17/19 20:11 Aspirin Ec PO 81 mg HS EDUARD Administration Atorvastatin Calcium 20 mg 07/14/19 21:00 07/17/19 20:11 Lipitor PO 20 mg HS EDUARD Administration Calcium Carbonate 200 mg 07/15/19 08:00 07/18/19 12:42 Tums PO 200 mg TIDWM EDUARD Administration Cyanocobalamin 1,000 mcg 07/15/19 09:00 07/18/19 09:11 Vitamin B-12 Tab PO 1,000 mcg DAILY EDUARD Administration Dextrose 12.5 gm 07/14/19 16:07 Dextrose 50% Syringe IV PUSH PRN PRN Hypoglycemia Protocol Epoetin Adolfo 10,000 units 07/18/19 05:35 Epogen IV PUSH [facility]FR [facility] Furosemide 160 mg 07/15/19 06:00 07/17/19 17:01 Lasix Tablet PO 160 mg TuTh@0600,1200,1800 EDUARD Administration Glucagon 1 mg 07/14/19 16:07 Glucagon For Inj IM PRN PRN Hypoglycemia Protocol Glucose 15 gm 07/14/19 16:07 Glutose 15 PO PRN PRN Hypoglycemia Protocol Heparin Sodium (Porcine) 5,000 units 07/15/19 11:30 07/18/19 09:11 Heparin Sodium SUB-Q 5,000 units Q12HR EDUARD Administration Dextrose 1,000 mls @ 100 mls/hr 07/14/19 16:07 Dextrose 5% 1,000 Ml IVPB PRN PRN Hypoglycemia Protocol Insulin Aspart 2 units 07/15/19 08:00 07/18/19 12:42 Novolog SUB-Q 2 units TIDWM EDUARD Administration Insulin Aspart 2 - 5 units 07/14/19 17:00 07/18/19 12:42 Nov
--- NOTE | 2019-07-18 13:14 | PCPTNOTE ---
Addendum entered by Maty Christensen, ACQUISITION LEAD 07/18/19 15:03: Patient and patient's refused PT due to patient anticipating going down to dialysis at 13:00. PT asked patient if he could work with therapy until dialysis got to the room and patient's reports patient just wants to get in bed and rest until dialysis came and patient reports he was having pain from sitting up and wants to rest until dialysis gets to the room. Checked with nursing and per RN: yes dialysis called up and said they would be up between 12:00 and 13:00. However dialysis did not up to patient's room until 14:00. Original Note: PT missed minutes this date secondary to patient leaving for dialysis. Total 22 minutes missed of PT.
--- NOTE | 2019-07-18 13:48 | PM.PNNEP ---
Progress Note: A&P Assessment and Plan (1) ESRD (end stage renal disease): Code(s): N18.6 - End stage renal disease Status: Acute Assessment and Plan: The patient is scheduled for a treatment today. We will remove 2L again. He and I discussed this. (2) Essential (primary) hypertension: Code(s): I10 - Essential (primary) hypertension Status: Acute Assessment and Plan: Blood pressure a bit high today. Fluid removal should help this. (3) Erythropoietin deficiency anemia: Code(s): D63.1 - Anemia in chronic kidney disease Status: Acute Assessment and Plan: Hemoglobin is 8.3. Continue EPO 10,000 3 times a week (4) Peripheral vascular disease: Code(s): I73.9 - Peripheral vascular disease, unspecified Status: Acute Assessment and Plan: Status post [id number] amputation. Subjective Date/time seen: 07/18/19 13:48 Interval history: Patient is feeling okay. No chest pain or shortness of breath. He is scheduled for dialysis this afternoon. Review of Systems Cardiovascular: Cardiovascular: Reports no additional cardiovascular complaints Respiratory: Respiratory: Reports no additional respiratory complaints Gastrointestinal: Gastrointestinal: Reports no additional gastrointestinal complaints Genitourinary: Genitourinary: Reports no additional male genitourinary complaints Exam Narrative: Exam Narrative: Well developed well-nourished in no acute distress Lungs clear Heart regular without rub or gallop Abdomen bowel sounds positive soft nontender Extremities no edema Skin no rash or subcu nodules Objective Data Vital Signs Vital Signs: Vital Signs - 24 hr 07/17/19 14:00 07/17/19 22:00 07/18/19 06:00 Temperature 36.4 C L 36.5 C 36.4 C L Pulse Rate 64 68 67 Respiratory Rate 18 20 16 Blood Pressure 118/52 L 133/59 L 157/69 H Pulse Oximetry 96 92 98 07/18/19 09:12 Temperature Pulse Rate 67 Respiratory Rate Blood Pressure Pulse Oximetry Intake/Output Intake/Output: Intake & Output 07/15/19 07/16/19 07/17/19 07/18/19 23:59 23:59 23:59 23:59 Intake Total 720 600 480 200 Output Total 2000 Balance 720 -1400 480 200 Meds/Results Medications: Active Medications Generic Name Dose Route Start Last Admin Trade Name Freq PRN Reason Stop Dose Admin Acetaminophen 650 mg 07/14/19 18:22 07/17/19 12:52 Tylenol Tablet PO 650 mg Q4H PRN Administration Pain (Scale Score 1-3) Hydrocodone Bitart/Acetaminophen 1 tab 07/14/19 18:22 07/18/19 13:10 [place] 5-325 Mg PO 1 tab Q4H PRN Administration Pain, Moderate Allopurinol 100 mg 07/15/19 09:00 07/18/19 09:11 Zyloprim PO 100 mg DAILY EDUARD Administration Amlodipine Besylate 10 mg 07/15/19 09:00 07/18/19 09:11 Norvasc PO 10 mg DAILY EDUARD Administration Aspirin 81 mg 07/14/19 21:00 07/17/19 20:11 Aspirin Ec PO 81 mg HS EDUARD Administration Atorvastatin Calcium 20 mg 07/14/19 21:00 07/17/19 20:11 Lipitor PO 20 mg HS EDUARD Administration Calcium Carbonate 200 mg 07/15/19 08:00 07/18/19 12:42 Tums PO 200 mg TIDWM EDUARD Administration Cyanocobalamin 1,000 mcg 07/15/19 09:00 07/18/19 09:11 Vitamin B-12 Tab PO 1,000 mcg DAILY EDUARD Administration Dextrose 12.5 gm 07/14/19 16:07 Dextrose 50% Syringe IV PUSH PRN PRN Hypoglycemia Protocol Epoetin Adolfo 10,000 units 07/18/19 05:35 Epogen IV PUSH MOWEFR [facility] Furosemide 160 mg 07/15/19 06:00 07/17/19 17:01 Lasix Tablet PO 160 mg TuTh@0600,1200,1800 EDUARD Administration Glucagon 1 mg 07/14/19 16:07 Glucagon For Inj IM PRN PRN Hypoglycemia Protocol Glucose 15 gm 07/14/19 16:07 Glutose 15 PO PRN PRN Hypoglycemia Protocol Heparin Sodium (Porcine) 5,000 units 07/15/19 11:30 07/18/19 09:11 Heparin Sodium SUB-Q 5,000 units Q12HR EDUARD Admin
[2019-07-18] MEDS: EPOETIN ALFA 10,000 UNITS/ML VIAL 10000 UNITS IV PUSH (16:50)
[2019-07-18 18:58] LABS: Glucose Point of Care 118 (65-105)
[2019-07-18] MEDS: ASPIRIN 81 MG ENTERIC TABLET PO (20:37)
[2019-07-18] MEDS: ATORVASTATIN 20 MG TABLET PO (20:37)
[2019-07-18] MEDS: MELATONIN 5 MG TABLET PO (20:37)
[2019-07-18] MEDS: INSULIN GLARGINE (*BKC) 100 UNITS/ML 8 UNITS SUB-Q (20:58)
[2019-07-18 21:00] LABS: Glucose Point of Care 195 (65-105)
[2019-07-19 06:00] VITALS: BP 163/76; PULSE 91; RESP 20; TEMP 36.8; O2SAT 100
[2019-07-19 06:53] LABS: Glucose Point of Care 104 (65-105)
[2019-07-19] MEDS: CALCIUM CARBONATE (TUMS) 500 MG (200 MG ELEMENTAL) PO ×3 (08:24→17:36)
[2019-07-19] MEDS: PYRIDOXINE HCL 50 MG TABLET 100 MG PO (08:25)
[2019-07-19] MEDS: CYANOCOBALAMIN 1,000 MCG TABLET 1000 MCG PO (08:25)
[2019-07-19] MEDS: AMLODIPINE BESYLATE 5 MG TABLET 10 MG PO (08:25)
[2019-07-19] MEDS: allopurinoL 100 MG TABLET PO (08:25)
[2019-07-19] MEDS: CHOLECALCIFEROL 1,000 UNIT TABLET 1000 UNITS PO (08:25)
[2019-07-19 08:26] VITALS: PULSE 88
[2019-07-19] MEDS: METOPROLOL SUCCINATE EXT REL 100 MG TABCR 200 MG PO (08:26)
[2019-07-19] MEDS: SEVELAMER CARBONATE 800 MG TABLET PO ×3 (08:26→18:25)
[2019-07-19] MEDS: HEPARIN SODIUM 5,000 UNITS/ML VIAL 5000 UNITS SUB-Q ×2 (08:26→20:38)
[2019-07-19] MEDS: lisinopriL 5 MG TABLET PO (08:26)
[2019-07-19] MEDS: VITAMIN E 400 UNIT CAPSULE PO (08:27)
[2019-07-19] MEDS: INSULIN ASPART (*BKC) 100 UNITS/ML SUB-Q ×3 (08:27→17:35)
[2019-07-19] MEDS: PREGABALIN 50 MG CAPSULE 100 MG PO ×2 (08:29→12:10)
[2019-07-19 12:02] LABS: Glucose Point of Care 146 (65-105)
[2019-07-19 14:00] VITALS: BP 145/75; PULSE 68; RESP 18; TEMP 37.1; O2SAT 92
--- NOTE | 2019-07-19 15:22 | WPDNEURORHBP ---
Subjective Date/time seen: 07/19/19 15:22 Interval history: patient is here for right BKA and also has left BKA next He is complaining of increasing neuropathic pain primarily in the right stump and asking if he could increase his the workup he has been on gabapentin before and asking for Lyrica to be increased Otherwise no chest pain shortness of breath headache etc Exam Const: General: comfortable and no acute distress HENMT: General nose exam: Normal nares present Mouth: Yes moist mucous membranes Eyes: General: appearance normal, both eyes and all related structures Neck: Neck: supple and no JVD Resp: Effort & Inspection: normal respiratory effort Auscultation: clear to auscultation bilaterally Cardio: Rate: regular rate Rhythm: regular rhythm GI: GI Palp: Yes Soft to palpation Auscultation: normal bowel sounds Skin: General skin exam: normal color and no rashes or lesions noted Neuro: Other: patient has remained awake alert and has a normal mental state examination he does have evidence of retinopathy which is stable obviously he has evidence of peripheral neuropathy and peripheral vascular disease and has bilateral BKA Extrem: Other: bilateral BKA next The stump on the right side is relatively fresh little reddish however no drainage no sign of infection Psych: Mental Status: mental status grossly normal Objective Data Vital Signs Vital Signs: Vital Signs - 24 hr 07/18/19 15:30 07/18/19 15:47 07/18/19 16:00 Temperature Pulse Rate 57 L 60 58 L Respiratory Rate Blood Pressure 115/47 L 117/57 L 115/56 L Pulse Oximetry 07/18/19 16:15 07/18/19 16:30 07/18/19 16:45 Temperature Pulse Rate 59 L 61 61 Respiratory Rate Blood Pressure 125/58 L 128/61 134/61 Pulse Oximetry 07/18/19 17:00 07/18/19 17:15 07/18/19 17:30 Temperature Pulse Rate 61 64 62 Respiratory Rate Blood Pressure 140/64 143/61 H 144/59 H Pulse Oximetry 07/18/19 17:45 07/18/19 18:00 07/18/19 18:10 Temperature Pulse Rate 62 66 65 Respiratory Rate Blood Pressure 138/62 145/65 H 141/70 H Pulse Oximetry 07/18/19 18:35 07/18/19 20:21 07/19/19 06:00 Temperature 36.7 C 37.1 C 36.8 C Pulse Rate 66 67 91 Respiratory Rate 18 18 20 Blood Pressure 140/64 142/51 H 163/76 H Pulse Oximetry 94 100 07/19/19 08:26 Temperature Pulse Rate 88 Respiratory Rate Blood Pressure Pulse Oximetry Intake/Output Intake/Output: Intake & Output 07/16/19 07/17/19 07/18/19 07/19/19 23:59 23:59 23:59 23:59 Intake Total 600 480 440 240 Output Total 1999 1999 Balance -1400 480 -1560 240 Meds/Results Medications: Active Medications Generic Name Dose Route Start Last Admin Trade Name Freq PRN Reason Stop Dose Admin Acetaminophen 650 mg 07/14/19 18:22 07/17/19 12:52 Tylenol Tablet PO 650 mg Q4H PRN Administration Pain (Scale Score 1-3) Hydrocodone Bitart/Acetaminophen 1 tab 07/14/19 18:22 07/19/19 09:39 [place] 5-325 Mg PO 1 tab Q4H PRN Administration Pain, Moderate Allopurinol 100 mg 07/15/19 09:00 07/19/19 08:25 Zyloprim PO 100 mg DAILY EDUARD Administration Amlodipine Besylate 10 mg 07/15/19 09:00 07/19/19 08:25 Norvasc PO 10 mg DAILY EDUARD Administration Aspirin 81 mg 07/14/19 21:00 07/18/19 20:37 Aspirin Ec PO 81 mg HS EDUARD Administration Atorvastatin Calcium 20 mg 07/14/19 21:00 07/18/19 20:37 Lipitor PO 20 mg HS EDUARD Administration Calcium Carbonate 200 mg 07/15/19 08:00 07/19/19 12:10 Tums PO 200 mg TIDWM EDUARD Administration Cyanocobalamin 1,000 mcg 07/15/19 09:00 07/19/19 08:25 Vitamin B-12 Tab PO 1,000 mcg DAILY EDUARD Administration Dextrose 12.5 gm 07/14/19 16:07 Dextrose 50% Syringe IV PUSH PRN PRN Hypoglycemia Protocol Epoetin Adolfo 10,000 units 07/18/19 05:35 07/18/19 16:50 Epogen IV PUSH 10,000 units MOWEFR EDUARD Administration Furosemide 16
[2019-07-19 16:59] LABS: Glucose Point of Care 153 (65-105)
[2019-07-19] MEDS: PREGABALIN 50 MG CAPSULE 150 MG PO (17:36)
[2019-07-19] MEDS: DOCUSATE SODIUM 100 MG CAPSULE PO (20:33)
[2019-07-19] MEDS: ASPIRIN 81 MG ENTERIC TABLET PO (20:33)
[2019-07-19] MEDS: ATORVASTATIN 20 MG TABLET PO (20:38)
[2019-07-19] MEDS: MELATONIN 5 MG TABLET PO (20:41)
[2019-07-19] MEDS: INSULIN GLARGINE (*BKC) 100 UNITS/ML 8 UNITS SUB-Q (20:45)
[2019-07-19 21:36] VITALS: BP 122/44; PULSE 66; RESP 20; TEMP 36.8; O2SAT 96
[2019-07-19 21:54] LABS: Glucose Point of Care 210 (65-105)
[2019-07-20 06:00] VITALS: BP 145/58; PULSE 64; RESP 16; TEMP 36.6; O2SAT 98
[2019-07-20 06:33] LABS: Glucose Point of Care 112 (65-105)
[2019-07-20] MEDS: CHOLECALCIFEROL 1,000 UNIT TABLET 1000 UNITS PO (09:29)
[2019-07-20] MEDS: INSULIN ASPART (*BKC) 100 UNITS/ML SUB-Q ×3 (09:29→18:09)
[2019-07-20] MEDS: CALCIUM CARBONATE (TUMS) 500 MG (200 MG ELEMENTAL) PO ×3 (09:29→18:12)
[2019-07-20] MEDS: SEVELAMER CARBONATE 800 MG TABLET PO ×3 (09:29→18:11)
[2019-07-20] MEDS: CYANOCOBALAMIN 1,000 MCG TABLET 1000 MCG PO (09:30)
[2019-07-20] MEDS: AMLODIPINE BESYLATE 5 MG TABLET 10 MG PO (09:30)
[2019-07-20] MEDS: allopurinoL 100 MG TABLET PO (09:31)
[2019-07-20] MEDS: lisinopriL 5 MG TABLET PO (09:31)
[2019-07-20] MEDS: HEPARIN SODIUM 5,000 UNITS/ML VIAL 5000 UNITS SUB-Q ×2 (09:31→20:25)
[2019-07-20] MEDS: DOCUSATE SODIUM 100 MG CAPSULE PO ×2 (09:31→20:24)
[2019-07-20 09:32] VITALS: PULSE 66
[2019-07-20] MEDS: METOPROLOL SUCCINATE EXT REL 100 MG TABCR 200 MG PO (09:32)
[2019-07-20] MEDS: PYRIDOXINE HCL 50 MG TABLET 100 MG PO (09:32)
[2019-07-20] MEDS: VITAMIN E 400 UNIT CAPSULE PO (09:32)
[2019-07-20] MEDS: PREGABALIN 50 MG CAPSULE 150 MG PO ×3 (09:34→18:12)
[2019-07-20 11:56] LABS: Glucose Point of Care 145 (65-105)
--- NOTE | 2019-07-20 13:47 | WPDNEURORHBP ---
Subjective Date/time seen: 07/20/19 13:47 Interval history: patient is here because of right BKA and has an old left BKA along with a history of diabetes mellitus diabetic retinopathy and also being on dialysis Overall patient is improving does not have any new specific complaints Denies headache chest pain shortness of breath or fevers Review of Systems Constitutional: Constitutional: Reports no additional constitutional complaints Eyes: Eyes: Reports no additional eye complaints ENT: Reports system reviewed and no additional complaints, except as documented Cardiovascular: Cardiovascular: Reports no additional cardiovascular complaints Respiratory: Respiratory: Reports no additional respiratory complaints Gastrointestinal: Gastrointestinal: Reports no additional gastrointestinal complaints Genitourinary: Genitourinary: Reports no additional male genitourinary complaints Musculoskeletal: Musculoskeletal: Reports no additional musculoskeletal complaints Integumentary/Breasts: Skin/Breast: Reports system reviewed and no additional complaints, except as docu Neurologic: Comments: patient does have evidence of peripheral neuropathy and also peripheral vascular disease Exam Const: General: comfortable and no acute distress HENMT: General nose exam: Normal nares present Mouth: Yes moist mucous membranes Eyes: General: appearance normal, both eyes and all related structures Other: evidence of bilateral diabetic retinopathy Neck: Neck: supple and no JVD Resp: Effort & Inspection: normal respiratory effort Auscultation: clear to auscultation bilaterally Cardio: Rate: regular rate Rhythm: regular rhythm GI: GI Palp: Yes Soft to palpation Auscultation: normal bowel sounds Skin: General skin exam: normal color and no rashes or lesions noted Neuro: Other: mental status is examination is normal Cranial nerve examination is normal barring the exception of diabetic retinopathy however fairly good vision Extrem: Other: right BKA new Left BKA with prosthesis old Psych: Mental Status: mental status grossly normal Objective Data Vital Signs Vital Signs: Vital Signs - 24 hr 07/19/19 14:00 07/19/19 21:36 07/20/19 06:00 Temperature 37.1 C 36.8 C 36.6 C Pulse Rate 68 66 64 Respiratory Rate 18 20 16 Blood Pressure 145/75 H 122/44 L 145/58 H Pulse Oximetry 92 96 98 07/20/19 09:32 Temperature Pulse Rate 66 Respiratory Rate Blood Pressure Pulse Oximetry Intake/Output Intake/Output: Intake & Output 07/17/19 07/18/19 07/19/19 07/20/19 23:59 23:59 23:59 23:59 Intake Total 480 440 720 720 Output Total 1999 Balance 480 -1608 720 720 Meds/Results Medications: Active Medications Generic Name Dose Route Start Last Admin Trade Name Freq PRN Reason Stop Dose Admin Acetaminophen 650 mg 07/14/19 18:22 07/17/19 12:52 Tylenol Tablet PO 650 mg Q4H PRN Administration Pain (Scale Score 1-3) Hydrocodone Bitart/Acetaminophen 1 tab 07/14/19 18:22 07/20/19 09:34 [place] 5-325 Mg PO 1 tab Q4H PRN Administration Pain, Moderate Allopurinol 100 mg 07/15/19 09:00 07/20/19 09:31 Zyloprim PO 100 mg DAILY EDUARD Administration Amlodipine Besylate 10 mg 07/15/19 09:00 07/20/19 09:30 Norvasc PO 10 mg DAILY EDUARD Administration Aspirin 81 mg 07/14/19 21:00 07/19/19 20:33 Aspirin Ec PO 81 mg HS EDUARD Administration Atorvastatin Calcium 20 mg 07/14/19 21:00 07/19/19 20:38 Lipitor PO 20 mg HS EDUARD Administration Calcium Carbonate 200 mg 07/15/19 08:00 07/20/19 12:46 Tums PO 200 mg TIDWM EDUARD Administration Cyanocobalamin 1,000 mcg 07/15/19 09:00 07/20/19 09:30 Vitamin B-12 Tab PO 1,000 mcg DAILY EDUARD Administration Dextrose 12.5 gm 07/14/19 16:07 Dextrose 50% Syringe IV PUSH PRN PRN Hypoglycemia Protocol Docusate Sodium 100 mg 07/19/19 21:00 07/20/19 09:31 Colace Cap PO 100 mg Q12HR
[2019-07-20 14:00] VITALS: BP 146/54; PULSE 64; RESP 20; TEMP 36.8; O2SAT 98
--- NOTE | 2019-07-20 14:48 | PM.PNNEP ---
Progress Note: A&P Assessment and Plan (1) ESRD (end stage renal disease): Code(s): N18.6 - End stage renal disease Status: Acute Assessment and Plan: The patient is scheduled for a treatment tomorrow. We will remove 2L again (2) Essential (primary) hypertension: Code(s): I10 - Essential (primary) hypertension Status: Acute Assessment and Plan: Blood pressure is good with a systolic of 120-140. (3) Erythropoietin deficiency anemia: Code(s): D63.1 - Anemia in chronic kidney disease Status: Acute Assessment and Plan: Hemoglobin is 8.3. Will get more EPO tomorrow. The patient's T sat is low. Will give Venofer on dialysis Check a CBC tomorrow. (4) Peripheral vascular disease: Code(s): I73.9 - Peripheral vascular disease, unspecified Status: Acute Assessment and Plan: Status post [id number] amputation. Subjective Date/time seen: 07/20/19 14:48 Interval history: Patient is feeling okay. No chest pain or shortness of breath. He is getting rehab now. Eating okay. Review of Systems Cardiovascular: Cardiovascular: Reports no additional cardiovascular complaints Respiratory: Respiratory: Reports no additional respiratory complaints Gastrointestinal: Gastrointestinal: Reports no additional gastrointestinal complaints Genitourinary: Genitourinary: Reports no additional male genitourinary complaints Exam Narrative: Exam Narrative: Well developed well-nourished in no acute distress Lungs clear bilaterally Heart regular without rub or gallop Abdomen bowel sounds positive soft nontender Extremities no edema Skin no rash Objective Data Vital Signs Vital Signs: Vital Signs - 24 hr 07/19/19 21:36 07/20/19 06:00 07/20/19 09:32 Temperature 36.8 C 36.6 C Pulse Rate 66 64 66 Respiratory Rate 20 16 Blood Pressure 122/44 L 145/58 H Pulse Oximetry 96 98 Intake/Output Intake/Output: Intake & Output 07/17/19 07/18/19 07/19/19 07/20/19 23:59 23:59 23:59 23:59 Intake Total 480 440 720 720 Output Total 1999 Balance 480 -1560 720 720 Meds/Results Medications: Active Medications Generic Name Dose Route Start Last Admin Trade Name Freq PRN Reason Stop Dose Admin Acetaminophen 650 mg 07/14/19 18:22 07/17/19 12:52 Tylenol Tablet PO 650 mg Q4H PRN Administration Pain (Scale Score 1-3) Hydrocodone Bitart/Acetaminophen 1 tab 07/14/19 18:22 07/20/19 09:34 [place] 5-325 Mg PO 1 tab Q4H PRN Administration Pain, Moderate Allopurinol 100 mg 07/15/19 09:00 07/20/19 09:31 Zyloprim PO 100 mg DAILY EDUARD Administration Amlodipine Besylate 10 mg 07/15/19 09:00 07/20/19 09:30 Norvasc PO 10 mg DAILY EDUARD Administration Aspirin 81 mg 07/14/19 21:00 07/19/19 20:33 Aspirin Ec PO 81 mg HS EDUARD Administration Atorvastatin Calcium 20 mg 07/14/19 21:00 07/19/19 20:38 Lipitor PO 20 mg HS EDUARD Administration Calcium Carbonate 200 mg 07/15/19 08:00 07/20/19 12:46 Tums PO 200 mg TIDWM EDUARD Administration Cyanocobalamin 1,000 mcg 07/15/19 09:00 07/20/19 09:30 Vitamin B-12 Tab PO 1,000 mcg DAILY EDUARD Administration Dextrose 12.5 gm 07/14/19 16:07 Dextrose 50% Syringe IV PUSH PRN PRN Hypoglycemia Protocol Docusate Sodium 100 mg 07/19/19 21:00 07/20/19 09:31 Colace Cap PO 100 mg Q12HR EDUARD Administration Epoetin Adolfo 10,000 units 07/18/19 05:35 07/18/19 16:50 Epogen IV PUSH 10,000 units MOWEFR EDUARD Administration Furosemide 160 mg 07/15/19 06:00 07/17/19 17:01 Lasix Tablet PO 160 mg TuTh@0600,1200,1800 EDUARD Administration Glucagon 1 mg 07/14/19 16:07 Glucagon For Inj IM PRN PRN Hypoglycemia Protocol Glucose 15 gm 07/14/19 16:07 Glutose 15 PO PRN PRN Hypoglycemia Protocol Heparin Sodium (Porcine) 5,000 units 07/15/19 11:30 07/20/19 09:
[2019-07-20 16:46] LABS: Glucose Point of Care 144 (65-105)
[2019-07-20] MEDS: ATORVASTATIN 20 MG TABLET PO (20:24)
[2019-07-20] MEDS: ASPIRIN 81 MG ENTERIC TABLET PO (20:24)
[2019-07-20] MEDS: INSULIN GLARGINE (*BKC) 100 UNITS/ML 8 UNITS SUB-Q (20:33)
[2019-07-20 22:00] VITALS: BP 133/54; PULSE 64; RESP 18; TEMP 36.8; O2SAT 97
[2019-07-21] VITALS (21 sets, daily range): BP systolic 100–178; BP diastolic 37–88; PULSE 62–93; RESP 16–18; TEMP 36.5–37; O2SAT 96
[2019-07-21 02:02] LABS: Glucose Point of Care 167 (65-105)
[2019-07-21] MEDS: MELATONIN 5 MG TABLET PO ×2 (02:45→20:37)
[2019-07-21 06:03] LABS: Glucose Point of Care 116 (65-105)
[2019-07-21] MEDS: allopurinoL 100 MG TABLET PO (09:30)
[2019-07-21] MEDS: HEPARIN SODIUM 5,000 UNITS/ML VIAL 5000 UNITS SUB-Q ×2 (09:31→20:35)
[2019-07-21] MEDS: CHOLECALCIFEROL 1,000 UNIT TABLET 1000 UNITS PO (09:31)
[2019-07-21] MEDS: METOPROLOL SUCCINATE EXT REL 100 MG TABCR 200 MG PO (09:31)
[2019-07-21] MEDS: VITAMIN E 400 UNIT CAPSULE PO (09:31)
[2019-07-21] MEDS: SEVELAMER CARBONATE 800 MG TABLET PO ×3 (09:31→17:57)
[2019-07-21] MEDS: CYANOCOBALAMIN 1,000 MCG TABLET 1000 MCG PO (09:31)
[2019-07-21] MEDS: DOCUSATE SODIUM 100 MG CAPSULE PO ×2 (09:32→21:00)
[2019-07-21] MEDS: PYRIDOXINE HCL 50 MG TABLET 100 MG PO (09:32)
[2019-07-21] MEDS: lisinopriL 5 MG TABLET PO (09:32)
[2019-07-21] MEDS: AMLODIPINE BESYLATE 5 MG TABLET 10 MG PO (09:33)
[2019-07-21] MEDS: CALCIUM CARBONATE (TUMS) 500 MG (200 MG ELEMENTAL) PO ×3 (09:40→18:00)
[2019-07-21] MEDS: PREGABALIN 50 MG CAPSULE 150 MG PO ×3 (09:50→18:00)
[2019-07-21 11:48] LABS: Glucose Point of Care 160 (65-105)
[2019-07-21] MEDS: INSULIN ASPART (*BKC) 100 UNITS/ML SUB-Q ×2 (12:21→18:00)
--- NOTE | 2019-07-21 13:42 | PCPTNOTE ---
The patient treatment was not able to be completed on 07/21/2019 due to dialysis treatment. Will plan to continue treatment per plan of care. Patient did not receive full PT minutes this date.
[2019-07-21] MEDS: EPOETIN ALFA 10,000 UNITS/ML VIAL 10000 UNITS IV PUSH (14:39)
--- NOTE | 2019-07-21 14:41 | PCOTNOTE ---
Pt. was attempted to be seen this P.M. for afternoon treatment session. Pt. was able to complete 19 minutes prior to having to go to dialysis. Pt. did not recieve full minutes this date.
[2019-07-21] MEDS: IRON SUCROSE COMPLEX 100 MG/5 ML VIAL 200 MG IV PUSH (14:47)
--- NOTE | 2019-07-21 16:25 | PM.PNNEP ---
Progress Note: A&P Assessment and Plan (1) ESRD (end stage renal disease): Code(s): N18.6 - End stage renal disease Status: Acute Assessment and Plan: HD today and continue M/W/F schedule while hospitalized follow electrolytes, volume status, and clearance (2) Essential (primary) hypertension: Code(s): I10 - Essential (primary) hypertension Status: Acute Assessment and Plan: reasonable control at this time follow trend of hemodynamics (3) Anemia in ESRD (end-stage renal disease): Code(s): N18.6 - End stage renal disease; D63.1 - Anemia in chronic kidney disease Status: Acute Assessment and Plan: Epogen with HD evidence of iron deficiency noted as well -- IV venofer with HD follow trend of H/H (4) Peripheral vascular disease: Code(s): I73.9 - Peripheral vascular disease, unspecified Status: Acute Assessment and Plan: status post [id number] amputation continue PT/OT/rehab Will continue to follow. Subjective Date/time seen: 07/21/19 16:25 Tolerating dialysis at the time of my visit (seen on HD at ~ 4:15PM); not acute complaints voiced at this time; states therapy is going well; no events overnight or this AM. Exam Narrative: Exam Narrative: General: WD/WN male in NAD Heart: normal S1 and S2; no rub Lungs: clear to auscultation Abdomen: soft, nontender, nondistended, positive bowel sounds Extremities: no cyanosis or clubbing; no edema Skin: warm and dry Objective Data Vital Signs Vital Signs: Vital Signs Temp Pulse Resp BP Pulse Ox 07/21/19 16:15 64 145/51 H 07/21/19 16:00 65 144/40 H 07/21/19 15:45 62 104/52 L 07/21/19 15:30 65 151/51 H 07/21/19 15:15 67 134/44 L 07/21/19 15:00 64 135/50 L 07/21/19 14:45 62 157/37 H 07/21/19 14:30 63 148/38 H 07/21/19 14:15 66 127/40 L 07/21/19 14:00 63 147/37 H 07/21/19 13:49 93 100/48 L 01/27/20 13:41 62 115/85 07/21/19 13:30 36.6 C 69 16 161/88 H 07/21/19 05:56 36.5 C 65 18 122/82 96 07/20/19 22:00 36.8 C 64 18 133/54 L 97 Intake/Output Intake/Output: Intake & Output 07/18/19 07/19/19 07/20/19 07/21/19 23:59 23:59 23:59 23:59 Intake Total 222 987 9147 480 Output Total 1999 Balance -6916 992 8960 480 Meds/Results Medications: Active Medications Generic Name Dose Route Start Last Admin Trade Name Freq PRN Reason Stop Dose Admin Acetaminophen 650 mg 07/14/19 18:22 07/17/19 12:52 Tylenol Tablet PO 650 mg Q4H PRN Administration Pain (Scale Score 1-3) Hydrocodone Bitart/Acetaminophen 1 tab 07/14/19 18:22 07/20/19 09:34 [place] 5-325 Mg PO 1 tab Q4H PRN Administration Pain, Moderate Allopurinol 100 mg 07/15/19 09:00 07/21/19 09:30 Zyloprim PO 100 mg DAILY EDUARD Administration Amlodipine Besylate 10 mg 07/15/19 09:00 07/21/19 09:33 Norvasc PO 10 mg DAILY EDUARD Administration Aspirin 81 mg 07/14/19 21:00 07/20/19 20:24 Aspirin Ec PO 81 mg HS EDUARD Administration Atorvastatin Calcium 20 mg 07/14/19 21:00 07/20/19 20:24 Lipitor PO 20 mg HS EDUARD Administration Calcium Carbonate 200 mg 07/15/19 08:00 07/21/19 12:20 Tums PO 200 mg TIDWM EDUARD Administration Cyanocobalamin 1,000 mcg 07/15/19 09:00 07/21/19 09:31 Vitamin B-12 Tab PO 1,000 mcg DAILY EDUARD Administration Dextrose 12.5 gm 07/14/19 16:07 Dextrose 50% Syringe IV PUSH PRN PRN Hypoglycemia Protocol Docusate Sodium 100 mg 07/19/19 21:00 07/21/19 09:32 Colace Cap PO 100 mg Q12HR EDUARD Administration Epoetin Adolfo 10,000 units 07/18/19 05:35 07/21/19 14:39 Epogen IV PUSH 10,000 units MOWEFR EDUARD Administration Furosemide 160 mg 07/15/19 06:00 07/17/19 17:01 Lasix Tablet PO 160 mg TuTh@0600,1200,1800 EDUARD Administration Glucagon 1 mg 07/14/19 16:07 Glucagon For Inj
[2019-07-21 17:57] LABS: Glucose Point of Care 115 (65-105)
[2019-07-21] MEDS: MAGNESIUM HYDROXIDE SUSP 30 ML UDC PO (18:28)
--- NOTE | 2019-07-21 20:30 | PC.NURSE ---
spoke with patient regarding getting dressing change completed for today. patient refused stating he was getting a shower tomorrow so he didn't wnat me to change it tonight.
[2019-07-21] MEDS: ASPIRIN 81 MG ENTERIC TABLET PO (20:35)
[2019-07-21] MEDS: ATORVASTATIN 20 MG TABLET PO (20:35)
[2019-07-21] MEDS: ACETAMINOPHEN 325 MG TABLET 650 MG PO (20:37)
[2019-07-21] MEDS: INSULIN GLARGINE (*BKC) 100 UNITS/ML 8 UNITS SUB-Q (20:38)
[2019-07-21 21:04] LABS: Glucose Point of Care 211 (65-105)
[2019-07-22 04:49] LABS: Basophils Percent Auto 0.5 % (0.2-1.2); Eosinophils Absolute Auto 0.2 K/mm3 (0-0.3); Eosinophils Percent Auto 2.3 % (0-4.4); Hemoglobin 7.7 g/dL (14.0-18.0); Immature Granulocyte Absolute 0.18 K/mm3 (0.00-0.031); Immature Granulocyte Percent A 2.2 % (0-0.5); Lymphocytes Absolute Auto 0.89 K/mm3 (0.9-3.2); Lymphocytes Percent Auto 10.9 % (18.3-44.2); Mean Corpuscular HGB Conc 29.6 g/dl (32-36); Mean Corpuscular Volume 94.5 fl (80-100); Mean Platelet Volume 10.5 fl (7.4-10.4); Monocytes Absolute Auto 0.7 K/mm3 (0.1-0.6); Monocytes Percent Auto 7.9 % (2.6-8.5); Neutrophils Absolute Auto 6.2 K/mm3 (1.3-6.7); Neutrophils Percent Auto 76.2 % (45.5-73.1); Platelet Count Result 233 k/mm3 (150-375); Red Blood Count 2.75 M/mm3 (4.6-6.20); Red Cell Distribution Width 17.1 % (11.5-14.5); White Blood Count 8.2 K/mm3 (4.5-10.0)
[2019-07-22 05:14] LABS: Blood Urea Nitrogen 21 mg/dL (9-20); Calcium 8.6 mg/dL (8.4-10.2); Carbon Dioxide 28 mmol/L (22-30); Chloride 93 mmol/L (98-107); Estimated CRCL calculation 14 ml/min; Estimated Glomerular Filt Rate 11; Glucose 128 mg/dL (75-110); Potassium 4.6 mmol/L (3.4-5.0); Sodium 133 mmol/L (137-145)
[2019-07-22] MEDS: FUROSEMIDE 80 MG TABLET 160 MG PO ×3 (05:31→18:42)
[2019-07-22 06:00] VITALS: BP 146/65; PULSE 64; RESP 16; TEMP 36.9; O2SAT 96
[2019-07-22 07:00] LABS: Glucose Point of Care 111 (65-105)
[2019-07-22] MEDS: AMLODIPINE BESYLATE 5 MG TABLET 10 MG PO (09:39)
[2019-07-22] MEDS: allopurinoL 100 MG TABLET PO (09:39)
[2019-07-22] MEDS: SEVELAMER CARBONATE 800 MG TABLET PO ×3 (09:39→18:42)
[2019-07-22] MEDS: CHOLECALCIFEROL 1,000 UNIT TABLET 1000 UNITS PO (09:40)
[2019-07-22] MEDS: DOCUSATE SODIUM 100 MG CAPSULE PO ×2 (09:40→20:42)
[2019-07-22] MEDS: HEPARIN SODIUM 5,000 UNITS/ML VIAL 5000 UNITS SUB-Q ×2 (09:40→20:42)
[2019-07-22] MEDS: CYANOCOBALAMIN 1,000 MCG TABLET 1000 MCG PO (09:40)
[2019-07-22] MEDS: lisinopriL 5 MG TABLET PO (09:40)
[2019-07-22 09:41] VITALS: PULSE 64
[2019-07-22] MEDS: METOPROLOL SUCCINATE EXT REL 100 MG TABCR 200 MG PO (09:41)
[2019-07-22] MEDS: PYRIDOXINE HCL 50 MG TABLET 100 MG PO (09:42)
[2019-07-22] MEDS: VITAMIN E 400 UNIT CAPSULE PO (09:43)
[2019-07-22] MEDS: CALCIUM CARBONATE (TUMS) 500 MG (200 MG ELEMENTAL) PO ×3 (09:47→18:44)
[2019-07-22] MEDS: PREGABALIN 50 MG CAPSULE 150 MG PO ×3 (09:48→18:44)
[2019-07-22] MEDS: INSULIN ASPART (*BKC) 100 UNITS/ML SUB-Q ×3 (09:48→18:45)
[2019-07-22] MEDS: ACETAMINOPHEN 325 MG TABLET 650 MG PO ×2 (10:26→20:51)
[2019-07-22 10:33] VITALS: BP 105/62; PULSE 80; O2SAT 100
[2019-07-22 12:19] LABS: Glucose Point of Care 97 (65-105)
--- NOTE | 2019-07-22 12:22 | WPDNEURORHBP ---
Subjective Date/time seen: 07/22/19 12:22 Interval history: patient is here for the fresh right BKA improving overall denies any headache chest pain shortness of breath no fever chills or sore throat He is engage in therapy and getting closer to being discharged in achieving the goals Review of Systems Constitutional: Constitutional: Reports no additional constitutional complaints Eyes: Eyes: Reports no additional eye complaints ENT: Reports system reviewed and no additional complaints, except as documented Cardiovascular: Cardiovascular: Reports no additional cardiovascular complaints Respiratory: Respiratory: Reports no additional respiratory complaints Gastrointestinal: Gastrointestinal: Reports no additional gastrointestinal complaints Genitourinary: Genitourinary: Reports no additional male genitourinary complaints Musculoskeletal: Musculoskeletal: Reports no additional musculoskeletal complaints Integumentary/Breasts: Skin/Breast: Reports system reviewed and no additional complaints, except as docu Neurologic: Reports system reviewed and no additional complaints, except as documented Psychiatric: Psychiatric: Reports no additional psychiatric complaints Exam Const: General: comfortable and no acute distress HENMT: General nose exam: Normal nares present Mouth: Yes moist mucous membranes Eyes: General: appearance normal, both eyes and all related structures Neck: Neck: supple and no JVD Resp: Effort & Inspection: normal respiratory effort Auscultation: clear to auscultation bilaterally Cardio: Rate: regular rate Rhythm: regular rhythm GI: GI Palp: Yes Soft to palpation Auscultation: normal bowel sounds : Male General Exam: Yes normal external exam Skin: General skin exam: normal color and no rashes or lesions noted Neuro: Other: mental status examination is normal, cranial nerve examination apart from the retinopathy is fairly decent of course 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 so not a whole lot of strength is lower extremities the stump is clean and healthy Extrem: Other: right BKA new 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 Evidence of peripheral neuropathy and peripheral vascular disease Psych: Mental Status: mental status grossly normal Objective Data Vital Signs Vital Signs: Vital Signs - 24 hr 07/21/19 13:30 07/21/19 13:41 07/21/19 13:49 Temperature 36.6 C Pulse Rate 69 62 93 Respiratory Rate 16 Blood Pressure 161/88 H 115/85 100/48 L Pulse Oximetry 07/21/19 14:00 07/21/19 14:15 07/21/19 14:30 Temperature Pulse Rate 63 66 63 Respiratory Rate Blood Pressure 147/37 H 127/40 L 148/38 H Pulse Oximetry 07/21/19 14:45 07/21/19 15:00 07/21/19 15:15 Temperature Pulse Rate 62 64 67 Respiratory Rate Blood Pressure 157/37 H 135/50 L 134/44 L Pulse Oximetry 07/21/19 15:30 07/21/19 15:45 07/21/19 16:00 Temperature Pulse Rate 65 62 65 Respiratory Rate Blood Pressure 151/51 H 104/52 L 144/40 H Pulse Oximetry 07/21/19 16:15 07/21/19 16:30 07/21/19 16:45 Temperature Pulse Rate 64 67 66 Respiratory Rate Blood Pressure 145/51 H 149/56 H 151/47 H Pulse Oximetry 07/21/19 17:00 07/21/19 17:11 07/21/19 17:15 Temperature 36.7 C Pulse Rate 67 64 68 Respiratory Rate 16 Blood Pressure 138/43 L 143/50 H 178/65 H Pulse Oximetry 07/21/19 21:52 07/22/19 06:00 07/22/19 09:41 Temperature 36.9 C 36.9 C Pulse Rate 66 64 64 Respiratory Rate 16 16 Blood Pressure 137/51 L 146/65 H Pulse Oximetry 96 96 Intake/Output Intake/Output: Intake & Output 07/19/19 07/20/19 07/21/19 07/22/19 23:59 23:59 23:59 23:59 Intake Total 720 1320 720 360 Output Total 3000 Balance 720 1320 -2280 360 Meds/Results Medications: Active Medications Generic Name Dose Route Start Last Admin Trade Name Freq PRN Reason Stop Dose Admin Acetaminophen 650 mg 07/14/19 18:22 07/22/19 10:26 Tylenol Tablet PO 650 mg Q4H PRN Administration
[2019-07-22] MEDS: polyethylene glycoL 3350 17 GM POWD.PACK PO (12:36)
--- NOTE | 2019-07-22 12:45 | PCDIET ---
Nutrition Follow-Up Complete: Nutrition Diagnosis: Increased protein needs related to increased demands for hemodialysis as evidenced by EMR, orders for dialysis 3x weekly. Nutrition Goals: Intakes >75%, stable weight. Goals met. Intakes 75-100% at most meals on regular diet. Denies c/o or concerns at this time. Last recorded weight is 95.6 kg which is increased. 3000mL UF yesterday in dialysis. Bowel Motility: +BM on 07/21/19. Labs Reviewed: Glu (128), BUN (21), Cr (5.1), Na (133) Meds Noted: Tums, Vitamin B12, Colace, Epogen, Lasix, Novolog, Lantus, Venofer, Miralax, Vitamin B-6, Renvela, Vitamin E, Vitamin D Additional Notes: Right leg surgical incision; no documented pressure ulceres. Will continue to monitor with same goals. No new recommendations at this time. Nutrition Monitoring and Evaluation: Follow up in 7 days.
[2019-07-22 14:00] VITALS: BP 134/52; PULSE 66; RESP 18; TEMP 36.5; O2SAT 96
[2019-07-22 17:44] LABS: Glucose Point of Care 152 (65-105)
[2019-07-22] MEDS: INSULIN GLARGINE (*BKC) 100 UNITS/ML 8 UNITS SUB-Q (20:41)
[2019-07-22] MEDS: ASPIRIN 81 MG ENTERIC TABLET PO (20:42)
[2019-07-22] MEDS: ATORVASTATIN 20 MG TABLET PO (20:43)
[2019-07-22] MEDS: MELATONIN 5 MG TABLET PO (20:45)
[2019-07-22 21:03] LABS: Glucose Point of Care 172 (65-105)
[2019-07-22 22:00] VITALS: BP 137/58; PULSE 68; RESP 18; TEMP 36.8; O2SAT 97
[2019-07-23] VITALS (24 sets, daily range): BP systolic 113–196; BP diastolic 43–80; PULSE 58–68; RESP 16–18; TEMP 36–37.1; O2SAT 94–100
[2019-07-23 06:40] LABS: Glucose Point of Care 96 (65-105)
[2019-07-23] MEDS: CALCIUM CARBONATE (TUMS) 500 MG (200 MG ELEMENTAL) PO ×3 (09:08→19:23)
[2019-07-23] MEDS: AMLODIPINE BESYLATE 5 MG TABLET 10 MG PO (09:08)
[2019-07-23] MEDS: SEVELAMER CARBONATE 800 MG TABLET PO ×3 (09:08→19:24)
[2019-07-23] MEDS: PREGABALIN 50 MG CAPSULE 150 MG PO ×3 (09:08→19:25)
[2019-07-23] MEDS: polyethylene glycoL 3350 17 GM POWD.PACK PO (09:08)
[2019-07-23] MEDS: lisinopriL 5 MG TABLET PO (09:09)
[2019-07-23] MEDS: HEPARIN SODIUM 5,000 UNITS/ML VIAL 5000 UNITS SUB-Q ×2 (09:09→20:20)
[2019-07-23] MEDS: METOPROLOL SUCCINATE EXT REL 100 MG TABCR 200 MG PO (09:09)
[2019-07-23] MEDS: CHOLECALCIFEROL 1,000 UNIT TABLET 1000 UNITS PO (09:10)
[2019-07-23] MEDS: VITAMIN E 400 UNIT CAPSULE PO (09:10)
[2019-07-23] MEDS: CYANOCOBALAMIN 1,000 MCG TABLET 1000 MCG PO (09:10)
[2019-07-23] MEDS: DOCUSATE SODIUM 100 MG CAPSULE PO ×2 (09:10→20:19)
[2019-07-23] MEDS: allopurinoL 100 MG TABLET PO (09:11)
[2019-07-23] MEDS: INSULIN ASPART (*BKC) 100 UNITS/ML SUB-Q ×2 (09:14→12:23)
[2019-07-23] MEDS: PYRIDOXINE HCL 50 MG TABLET 100 MG PO (09:20)
[2019-07-23 11:48] LABS: Glucose Point of Care 117 (65-105)
--- NOTE | 2019-07-23 13:44 | WPDNEURORHBP ---
Subjective Date/time seen: 07/23/19 13:44 Interval history: for and patient is doing fairly well tolerating the dialysis and also the physical therapy he has bilateral BKA end-stage renal disease being on dialysis Review of Systems Constitutional: Constitutional: Reports no additional constitutional complaints Eyes: Eyes: Reports no additional eye complaints ENT: Reports system reviewed and no additional complaints, except as documented Cardiovascular: Cardiovascular: Reports no additional cardiovascular complaints Respiratory: Respiratory: Reports no additional respiratory complaints Gastrointestinal: Gastrointestinal: Reports no additional gastrointestinal complaints Genitourinary: Genitourinary: Reports no additional male genitourinary complaints Musculoskeletal: Musculoskeletal: Reports no additional musculoskeletal complaints Integumentary/Breasts: Skin/Breast: Reports system reviewed and no additional complaints, except as docu Neurologic: Reports system reviewed and no additional complaints, except as documented Psychiatric: Psychiatric: Reports no additional psychiatric complaints Exam Const: General: comfortable and no acute distress HENMT: General nose exam: Normal nares present Mouth: Yes moist mucous membranes Eyes: General: appearance normal, both eyes and all related structures Neck: Neck: no JVD Resp: Effort & Inspection: normal respiratory effort Auscultation: clear to auscultation bilaterally Cardio: Rate: regular rate Rhythm: regular rhythm GI: GI Palp: Yes Soft to palpation Auscultation: normal bowel sounds Skin: General skin exam: normal color and no rashes or lesions noted Neuro: Other: mental status examination is normal cranial examination reveals diabetic retinopathy he has bilateral BKA and evidence of peripheral neuropathy and peripheral vascular disease Extrem: Other: bilateral BKA Psych: Mental Status: mental status grossly normal Objective Data Vital Signs Vital Signs: Vital Signs - 24 hr 07/22/19 14:00 07/22/19 22:00 07/23/19 05:36 Temperature 36.5 C 36.8 C 36.9 C Pulse Rate 66 68 66 Respiratory Rate 18 18 18 Blood Pressure 134/52 L 137/58 L 137/55 L Pulse Oximetry 96 97 95 07/23/19 09:09 Temperature Pulse Rate 68 Respiratory Rate Blood Pressure Pulse Oximetry Intake/Output Intake/Output: Intake & Output 07/20/19 07/21/19 07/22/19 07/23/19 23:59 23:59 23:59 23:59 Intake Total 4630 353 0783 600 Output Total 3000 0 Balance 1320 -2280 1780 600 Meds/Results Medications: Active Medications Generic Name Dose Route Start Last Admin Trade Name Freq PRN Reason Stop Dose Admin Acetaminophen 650 mg 07/14/19 18:22 07/22/19 20:51 Tylenol Tablet PO 650 mg Q4H PRN Administration Pain (Scale Score 1-3) Hydrocodone Bitart/Acetaminophen 1 tab 07/14/19 18:22 07/20/19 09:34 [place] 5-325 Mg PO 1 tab Q4H PRN Administration Pain, Moderate Allopurinol 100 mg 07/15/19 09:00 07/23/19 09:11 Zyloprim PO 100 mg DAILY EDUARD Administration Amlodipine Besylate 10 mg 07/15/19 09:00 07/23/19 09:08 Norvasc PO 10 mg DAILY [facility]UARD Administration Aspirin 81 mg 07/14/19 21:00 07/22/19 20:42 Aspirin Ec PO 81 mg HS [facility]UARD Administration Atorvastatin Calcium 20 mg 07/14/19 21:00 07/22/19 20:43 Lipitor PO 20 mg HS [facility]UARD Administration Calcium Carbonate 200 mg 07/15/19 08:00 07/23/19 12:15 Tums PO 200 mg TIDWM [facility] Administration Cyanocobalamin 1,000 mcg 07/15/19 09:00 07/23/19 09:10 Vitamin B-12 Tab PO 1,000 mcg DAILY [facility] Administration Dextrose 12.5 gm 07/14/19 16:07 Dextrose 50% Syringe IV PUSH PRN PRN Hypoglycemia Protocol Docusate Sodium 100 mg 07/19/19 21:00 07/23/19 09:10 Colace Cap PO 100 mg Q12HR [facility] Administration Epoetin Adolfo 20,000 units 07/23/19 07:36 Epogen IV PUSH MOWEFR [facility] Furosemide 160 mg 07/15/19 06:00
--- NOTE | 2019-07-23 14:50 | PCOTNOTE ---
It is recommended that this patient, Nahun Soto, have a drop-arm commode for home use. This patient is currently non-ambulatory and requires uses of a sliding board to transfer due to a (R) BKA and NWB (R)LE. The patient also has further impairments of pain, (L)LE prosthesis with weakness and decreased endurance and balance. A drop-arm commode is recommended for home use in order to provide optimal safety and independence with toileting tasks and transfers. The drop-arm commode will resolve patient's mobility limitations and will provide safe access to a toilet within her home. I agree with and certify that the above recommendation is medically necessary. Referring Physician Date
--- NOTE | 2019-07-23 15:11 | PCPTNOTE ---
The patient treatment was not able to be completed on 07/23/2019 due to dialysis treatment patient missed 6 minutes of PT session. Will plan to continue treatment per plan of care.
[2019-07-23] MEDS: EPOETIN ALFA 20,000 UNITS/ML VIAL 20000 UNITS IV PUSH (16:03)
[2019-07-23] MEDS: IRON SUCROSE COMPLEX 100 MG/5 ML VIAL 200 MG IV PUSH (16:03)
--- NOTE | 2019-07-23 17:51 | PM.PNNEP ---
Progress Note: A&P Assessment and Plan (1) ESRD (end stage renal disease): Code(s): N18.6 - End stage renal disease Status: Acute Assessment and Plan: HD today and continue M/W/F schedule while hospitalized follow electrolytes, volume status, and clearance (2) Essential (primary) hypertension: Code(s): I10 - Essential (primary) hypertension Status: Acute Assessment and Plan: reasonable control at this time follow trend of hemodynamics (3) Anemia in ESRD (end-stage renal disease): Code(s): N18.6 - End stage renal disease; D63.1 - Anemia in chronic kidney disease Status: Acute Assessment and Plan: Epogen with HD evidence of iron deficiency noted as well -- IV venofer with HD follow trend of H/H (4) Peripheral vascular disease: Code(s): I73.9 - Peripheral vascular disease, unspecified Status: Acute Assessment and Plan: status post [id number] amputation continue PT/OT/rehab Will continue to follow. Subjective Date/time seen: 07/23/19 17:51 Tolerating dialysis at the time of my visit (seen on HD at ~ 5:40PM); PT/OT is going well and apparently, he is tentatively scheduled for possible discharge later this week; no apparent distress voiced. Exam Narrative: Exam Narrative: General: WD/WN male in NAD Heart: normal S1 and S2; no rub Lungs: clear to auscultation Abdomen: soft, nontender, nondistended, positive bowel sounds Extremities: no cyanosis or clubbing; no edema Skin: warm and intact Objective Data Vital Signs Vital Signs: Vital Signs Temp Pulse Resp BP Pulse Ox 07/23/19 17:30 58 L 189/67 H 07/23/19 17:15 62 192/59 H 07/23/19 17:00 60 196/70 H 07/23/19 16:45 64 174/54 H 07/23/19 16:30 62 163/80 H 07/23/19 16:15 62 186/70 H 07/23/19 16:00 61 182/65 H 07/23/19 15:45 59 L 190/64 H 07/23/19 15:30 59 L 175/51 H 07/23/19 15:15 66 147/76 H 07/23/19 15:00 61 168/72 H 07/23/19 14:45 63 158/71 H 07/23/19 14:37 63 160/65 H 07/23/19 14:17 36.9 C 67 16 153/65 H 07/23/19 14:00 36.8 C 64 18 113/56 L 100 07/23/19 11:30 63 18 100 07/23/19 09:09 68 07/23/19 05:36 36.9 C 66 18 137/55 L 95 07/22/19 22:00 36.8 C 68 18 137/58 L 97 Intake/Output Intake/Output: Intake & Output 07/20/19 07/21/19 07/22/19 07/23/19 23:59 23:59 23:59 23:59 Intake Total 4018 534 3647 600 Output Total 3000 0 Balance 1320 -2280 1780 600 Meds/Results Medications: Active Medications Generic Name Dose Route Start Last Admin Trade Name Freq PRN Reason Stop Dose Admin Acetaminophen 650 mg 07/14/19 18:22 07/22/19 20:51 Tylenol Tablet PO 650 mg Q4H PRN Administration Pain (Scale Score 1-3) Hydrocodone Bitart/Acetaminophen 1 tab 07/14/19 18:22 07/20/19 09:34 [place] 5-325 Mg PO 1 tab Q4H PRN Administration Pain, Moderate Allopurinol 100 mg 07/15/19 09:00 07/23/19 09:11 Zyloprim PO 100 mg DAILY EDUARD Administration Amlodipine Besylate 10 mg 07/15/19 09:00 07/23/19 09:08 Norvasc PO 10 mg DAILY EDUARD Administration Aspirin 81 mg 07/14/19 21:00 07/22/19 20:42 Aspirin Ec PO 81 mg HS EDUARD Administration Atorvastatin Calcium 20 mg 07/14/19 21:00 07/22/19 20:43 Lipitor PO 20 mg HS EDUARD Administration Calcium Carbonate 200 mg 07/15/19 08:00 07/23/19 12:15 Tums PO 200 mg TIDWM [facility] Administration Cyanocobalamin 1,000 mcg 07/15/19 09:00 07/23/19 09:10 Vitamin B-12 Tab PO 1,000 mcg DAILY [facility]UARD Administration Dextrose 12.5 gm 07/14/19 16:07 Dextrose 50% Syringe IV PUSH PRN PRN Hypoglycemia Protocol Docusate Sodium 100 mg 07/19/19 21:00 07/23/19 09:10 Colace Cap PO 100 mg Q12HR [facility] Administration Epoetin Adolfo 20,000 units 07/23/19 07:36 07/23/19 16:03 Epogen IV PUSH 20,000 units MOWEFR [facility] Administra
[2019-07-23] MEDS: ATORVASTATIN 20 MG TABLET PO (20:19)
[2019-07-23] MEDS: ASPIRIN 81 MG ENTERIC TABLET PO (20:20)
[2019-07-23] MEDS: MELATONIN 5 MG TABLET PO (20:22)
[2019-07-23] MEDS: INSULIN GLARGINE (*BKC) 100 UNITS/ML 8 UNITS SUB-Q (20:28)
[2019-07-23 21:04] LABS: Glucose Point of Care 189 (65-105)
[2019-07-24 06:00] VITALS: BP 154/65; PULSE 71; RESP 16; TEMP 36.8; O2SAT 95
[2019-07-24] MEDS: FUROSEMIDE 80 MG TABLET 160 MG PO ×3 (06:03→17:47)
[2019-07-24 06:59] LABS: Glucose Point of Care 121 (65-105)
[2019-07-24] MEDS: ACETAMINOPHEN 325 MG TABLET 650 MG PO ×2 (07:03→10:51)
[2019-07-24] MEDS: INSULIN ASPART (*BKC) 100 UNITS/ML SUB-Q ×3 (10:35→17:45)
[2019-07-24] MEDS: CALCIUM CARBONATE (TUMS) 500 MG (200 MG ELEMENTAL) PO ×3 (10:38→17:45)
[2019-07-24] MEDS: SEVELAMER CARBONATE 800 MG TABLET PO ×3 (10:39→17:47)
[2019-07-24] MEDS: allopurinoL 100 MG TABLET PO (10:39)
[2019-07-24] MEDS: AMLODIPINE BESYLATE 5 MG TABLET 10 MG PO (10:40)
[2019-07-24] MEDS: PYRIDOXINE HCL 50 MG TABLET 100 MG PO (10:40)
[2019-07-24] MEDS: DOCUSATE SODIUM 100 MG CAPSULE PO ×2 (10:40→19:54)
[2019-07-24] MEDS: polyethylene glycoL 3350 17 GM POWD.PACK PO (10:41)
[2019-07-24] MEDS: PREGABALIN 50 MG CAPSULE 150 MG PO ×3 (10:41→17:46)
[2019-07-24] MEDS: CHOLECALCIFEROL 1,000 UNIT TABLET 1000 UNITS PO (10:41)
[2019-07-24] MEDS: CYANOCOBALAMIN 1,000 MCG TABLET 1000 MCG PO (10:42)
[2019-07-24] MEDS: lisinopriL 5 MG TABLET PO (10:43)
[2019-07-24] MEDS: HEPARIN SODIUM 5,000 UNITS/ML VIAL 5000 UNITS SUB-Q ×2 (10:43→19:54)
[2019-07-24] MEDS: VITAMIN E 400 UNIT CAPSULE PO (10:43)
[2019-07-24 10:50] VITALS: PULSE 71
[2019-07-24] MEDS: METOPROLOL SUCCINATE EXT REL 100 MG TABCR 200 MG PO (10:50)
--- NOTE | 2019-07-24 11:46 | WPDNEURORHBP ---
Subjective Date/time seen: 07/24/19 11:46 Interval history: patient is here for fresh right BKA and old left BKA along with the hemodialysis He does not have any new specific complaints Review of Systems Review of Systems: All systems reviewed & are unremarkable except as noted in HPI and below Constitutional: Constitutional: Reports no additional constitutional complaints Eyes: Eyes: Reports no additional eye complaints ENT: Reports system reviewed and no additional complaints, except as documented Cardiovascular: Cardiovascular: Reports no additional cardiovascular complaints Respiratory: Respiratory: Reports no additional respiratory complaints Gastrointestinal: Gastrointestinal: Reports no additional gastrointestinal complaints Genitourinary: Genitourinary: Reports no additional male genitourinary complaints Musculoskeletal: Musculoskeletal: Reports no additional musculoskeletal complaints Integumentary/Breasts: Skin/Breast: Reports system reviewed and no additional complaints, except as docu Neurologic: Comments: patient's strength and endurance is improving he does have evidence of retinopathy without much of decrease in the visual acuity and also evidence of peripheral neuropathy and peripheral vascular disease Psychiatric: Psychiatric: Reports no additional psychiatric complaints Exam Const: General: comfortable and no acute distress HENMT: General nose exam: Normal nares present Mouth: Yes moist mucous membranes Eyes: General: appearance normal, both eyes and all related structures Other: evidence of retinopathy Neck: Neck: supple and no JVD Resp: Effort & Inspection: normal respiratory effort Auscultation: clear to auscultation bilaterally Cardio: Rate: regular rate Rhythm: regular rhythm GI: GI Palp: Yes Soft to palpation Auscultation: normal bowel sounds Skin: General skin exam: normal color and no rashes or lesions noted Neuro: Other: patient's mental stress examined in normal cranial nerve examination is now he does have evidence of peripheral neuropathy and peripheral vascular disease and bilateral BKA Extrem: Other: bilateral BKA Psych: Mental Status: mental status grossly normal Objective Data Vital Signs Vital Signs: Vital Signs - 24 hr 07/23/19 14:00 07/23/19 14:17 07/23/19 14:37 Temperature 36.8 C 36.9 C Pulse Rate 64 67 63 Respiratory Rate 18 16 Blood Pressure 113/56 L 153/65 H 160/65 H Pulse Oximetry 100 07/23/19 14:45 07/23/19 15:00 07/23/19 15:15 Temperature Pulse Rate 63 61 66 Respiratory Rate Blood Pressure 158/71 H 168/72 H 147/76 H Pulse Oximetry 07/23/19 15:30 07/23/19 15:45 07/23/19 16:00 Temperature Pulse Rate 59 L 59 L 61 Respiratory Rate Blood Pressure 175/51 H 190/64 H 182/65 H Pulse Oximetry 07/23/19 16:15 07/23/19 16:30 07/23/19 16:45 Temperature Pulse Rate 62 62 64 Respiratory Rate Blood Pressure 186/70 H 163/80 H 174/54 H Pulse Oximetry 07/23/19 17:00 07/23/19 17:15 07/23/19 17:30 Temperature Pulse Rate 60 62 58 L Respiratory Rate Blood Pressure 196/70 H 192/59 H 189/67 H Pulse Oximetry 07/23/19 17:45 07/23/19 18:20 07/23/19 18:37 Temperature 36.8 C Pulse Rate 63 62 64 Respiratory Rate 16 Blood Pressure 147/66 H 164/59 H 167/75 H Pulse Oximetry 07/23/19 20:00 07/23/19 21:32 07/24/19 06:00 Temperature 37.1 C 37.1 C 36.8 C Pulse Rate 68 68 71 Respiratory Rate 16 16 16 Blood Pressure 152/43 H 152/43 H 154/65 H Pulse Oximetry 94 94 95 07/24/19 10:50 Temperature Pulse Rate 71 Respiratory Rate Blood Pressure Pulse Oximetry Intake/Output Intake/Output: Intake & Output 07/21/19 07/22/19 07/23/19 07/24/19 23:59 23:59 23:59 23:59 Intake Total 720 1780 600 240 Output Total 3000 0 3000 Balance -2280 1780 -2400 240 Meds/Results Medications: Active Medications Generic Name Dose Route Start Last Admin Trade Name Freq PRN Reason Stop Do
[2019-07-24 12:52] LABS: Glucose Point of Care 125 (65-105)
[2019-07-24 14:00] VITALS: BP 114/52; PULSE 63; RESP 18; TEMP 36.7; O2SAT 92
[2019-07-24 17:42] LABS: Glucose Point of Care 135 (65-105)
[2019-07-24] MEDS: MELATONIN 5 MG TABLET PO (19:54)
[2019-07-24] MEDS: ASPIRIN 81 MG ENTERIC TABLET PO (19:55)
[2019-07-24] MEDS: INSULIN GLARGINE (*BKC) 100 UNITS/ML 8 UNITS SUB-Q (19:56)
[2019-07-24 20:45] LABS: Glucose Point of Care 147 (65-105)
[2019-07-24 22:00] VITALS: BP 147/68; PULSE 84; RESP 20; TEMP 37.9; O2SAT 95
[2019-07-25] VITALS (21 sets, daily range): BP systolic 136–196; BP diastolic 53–86; PULSE 64–80; RESP 18; TEMP 36.6–37.7; O2SAT 92–100
[2019-07-25 06:32] LABS: Glucose Point of Care 112 (65-105)
[2019-07-25] MEDS: EPOETIN ALFA 20,000 UNITS/ML VIAL 20000 UNITS IV PUSH (10:20)
[2019-07-25] MEDS: IRON SUCROSE COMPLEX 100 MG/5 ML VIAL 200 MG IV PUSH (10:21)
--- NOTE | 2019-07-25 11:31 | WPDNEURORHBP ---
Subjective Date/time seen: 07/25/19 11:31 Interval history: the patient was examined in the dialysis unit he is doing well and ready to be discharged this afternoon He denies any headache nausea vomiting chest pain shortness of breath and quite ready to be discharged this afternoon Review of Systems Constitutional: Constitutional: Reports no additional constitutional complaints Eyes: Eyes: Reports no additional eye complaints ENT: Reports system reviewed and no additional complaints, except as documented Cardiovascular: Cardiovascular: Reports no additional cardiovascular complaints Respiratory: Respiratory: Reports no additional respiratory complaints Gastrointestinal: Gastrointestinal: Reports no additional gastrointestinal complaints Genitourinary: Genitourinary: Reports no additional male genitourinary complaints Musculoskeletal: Musculoskeletal: Reports no additional musculoskeletal complaints Integumentary/Breasts: Skin/Breast: Reports system reviewed and no additional complaints, except as docu Neurologic: Reports system reviewed and no additional complaints, except as documented Psychiatric: Psychiatric: Reports no additional psychiatric complaints Exam Const: General: comfortable and no acute distress HENMT: General nose exam: Normal nares present Eyes: General: appearance normal, both eyes and all related structures Other: evidence of diabetic retinopathy stable Neck: Neck: supple and no JVD Resp: Effort & Inspection: normal respiratory effort Auscultation: clear to auscultation bilaterally Cardio: Rate: regular rate Rhythm: regular rhythm GI: GI Palp: Yes Soft to palpation Auscultation: normal bowel sounds Skin: General skin exam: normal color and no rashes or lesions noted Other: the fistula for dialysis is intact and functioning well Neuro: Other: patient's mental status is normal, cranial nerve examination apart from showing retinopathy is fairly decent he of course has bilateral BKA 1 new 1 and the other 1 old Extrem: Other: bilateral BKA Psych: Mental Status: mental status grossly normal Objective Data Vital Signs Vital Signs: Vital Signs - 24 hr 07/24/19 14:00 07/24/19 22:00 07/25/19 06:00 Temperature 36.7 C 37.9 C H 36.6 C Pulse Rate 63 84 64 Respiratory Rate 18 20 18 Blood Pressure 114/52 L 147/68 H 137/56 L Pulse Oximetry 92 95 92 07/25/19 08:45 07/25/19 09:00 07/25/19 09:15 Temperature 36.6 C Pulse Rate 72 72 70 Respiratory Rate 18 Blood Pressure 156/53 H 164/85 H 163/77 H Pulse Oximetry 100 07/25/19 09:30 07/25/19 09:45 07/25/19 10:00 Temperature Pulse Rate 72 70 72 Respiratory Rate Blood Pressure 155/75 H 168/78 H 178/75 H Pulse Oximetry 07/25/19 10:15 Temperature Pulse Rate 70 Respiratory Rate Blood Pressure 177/81 H Pulse Oximetry Intake/Output Intake/Output: Intake & Output 07/22/19 07/23/19 07/24/19 07/25/19 23:59 23:59 23:59 23:59 Intake Total 3178 754 1522 220 Output Total 0 3000 200 0 Balance 1780 -2400 1020 220 Meds/Results Medications: Active Medications Generic Name Dose Route Start Last Admin Trade Name Freq PRN Reason Stop Dose Admin Acetaminophen 650 mg 07/14/19 18:22 07/24/19 10:51 Tylenol Tablet PO 650 mg Q4H PRN Administration Pain (Scale Score 1-3) Allopurinol 100 mg 07/15/19 09:00 07/24/19 10:39 Zyloprim PO 100 mg DAILY [facility]UARD Administration Amlodipine Besylate 10 mg 07/15/19 09:00 07/24/19 10:40 Norvasc PO 10 mg DAILY [facility] Administration Aspirin 81 mg 07/14/19 21:00 07/24/19 19:55 Aspirin Ec PO 81 mg HS [facility] Administration Atorvastatin Calcium 20 mg 07/14/19 21:00 07/23/19 20:19 Lipitor PO 20 mg HS [facility]UARD Administration Calcium Carbonate 200 mg 07/15/19 08:00 07/24/19 17:45 Tums PO 200 mg TIDWM [facility] Administration Cyanocobalamin 1,000 mcg 07/15/19 09:00 07/24/19 10:42 Vitamin B-12 Tab PO 1,000 mcg DAILY
--- NOTE | 2019-07-25 12:14 | PM.PNNEP ---
Progress Note: A&P Assessment and Plan (1) ESRD (end stage renal disease): Code(s): N18.6 - End stage renal disease Status: Acute Assessment and Plan: HD today and continue M/W/F schedule while hospitalized follow electrolytes, volume status, and clearance (2) Essential (primary) hypertension: Code(s): I10 - Essential (primary) hypertension Status: Acute Assessment and Plan: reasonable control at this time follow trend of hemodynamics (3) Anemia in ESRD (end-stage renal disease): Code(s): N18.6 - End stage renal disease; D63.1 - Anemia in chronic kidney disease Status: Acute Assessment and Plan: Epogen with HD evidence of iron deficiency noted as well -- IV venofer with HD follow trend of H/H (4) Peripheral vascular disease: Code(s): I73.9 - Peripheral vascular disease, unspecified Status: Acute Assessment and Plan: status post [id number] amputation continue PT/OT/rehab Will continue to follow. Subjective Date/time seen: 07/25/19 12:14 Tolerating dialysis at the time of my visit (seen on HD at ~ 11:30AM); sleeping comfortably when seen; no reported issues or problems currently; noted plans for discharge later today. Exam Narrative: Exam Narrative: General: WD/WN male in NAD Heart: normal S1 and S2; no rub Lungs: clear to auscultation Abdomen: soft, nontender, nondistended, positive bowel sounds Extremities: no cyanosis or clubbing; no edema Skin: no rash or nodules Objective Data Vital Signs Vital Signs: Vital Signs Temp Pulse Resp BP Pulse Ox 07/25/19 11:45 74 175/76 H 07/25/19 11:30 69 174/76 H 07/25/19 11:15 70 163/79 H 07/25/19 11:00 72 180/82 H 07/25/19 10:45 69 178/83 H 07/25/19 10:30 71 181/80 H 07/25/19 10:15 70 177/81 H 07/25/19 10:00 72 178/75 H 07/25/19 09:45 70 168/78 H 07/25/19 09:30 72 155/75 H 07/25/19 09:15 70 163/77 H 07/25/19 09:00 72 164/85 H 07/25/19 08:45 36.6 C 72 18 156/53 H 100 07/25/19 06:00 36.6 C 64 18 137/56 L 92 07/24/19 22:00 37.9 C H 84 20 147/68 H 95 07/24/19 14:00 36.7 C 63 18 114/52 L 92 Intake/Output Intake/Output: Intake & Output 07/22/19 07/23/19 07/24/19 07/25/19 23:59 23:59 23:59 23:59 Intake Total 8782 052 7417 220 Output Total 0 3000 200 0 Balance 1780 -2400 1020 220 Meds/Results Medications: Active Medications Generic Name Dose Route Start Last Admin Trade Name Freq PRN Reason Stop Dose Admin Acetaminophen 650 mg 07/14/19 18:22 07/24/19 10:51 Tylenol Tablet PO 650 mg Q4H PRN Administration Pain (Scale Score 1-3) Allopurinol 100 mg 07/15/19 09:00 07/24/19 10:39 Zyloprim PO 100 mg DAILY EDUARD Administration Amlodipine Besylate 10 mg 07/15/19 09:00 07/24/19 10:40 Norvasc PO 10 mg DAILY EDUARD Administration Aspirin 81 mg 07/14/19 21:00 07/24/19 19:55 Aspirin Ec PO 81 mg HS EDUARD Administration Atorvastatin Calcium 20 mg 07/14/19 21:00 07/23/19 20:19 Lipitor PO 20 mg HS EDUARD Administration Calcium Carbonate 200 mg 07/15/19 08:00 07/24/19 17:45 Tums PO 200 mg TIDWM EDUARD Administration Cyanocobalamin 1,000 mcg 07/15/19 09:00 07/24/19 10:42 Vitamin B-12 Tab PO 1,000 mcg DAILY EDUARD Administration Dextrose 12.5 gm 07/14/19 16:07 Dextrose 50% Syringe IV PUSH PRN PRN Hypoglycemia Protocol Docusate Sodium 100 mg 07/19/19 21:00 07/24/19 19:54 Colace Cap PO 100 mg Q12HR EDUARD Administration Epoetin Adolfo 20,000 units 07/23/19 07:36 07/25/19 10:20 Epogen IV PUSH 20,000 units MOWEFR EDUARD Administration Furosemide 160 mg 07/15/19 06:00 07/24/19 17:47 Lasix Tablet PO 160 mg TuTh@0600,1200,1800 EDUARD Administration Glucagon 1 mg 07/14/19 16:07 Glucagon For Inj IM PRN PRN Hypoglycemia Protocol Glucose 15 gm 06/26
[2019-07-25 13:33] LABS: Glucose Point of Care 108 (65-105)
[2019-07-25] MEDS: AMLODIPINE BESYLATE 5 MG TABLET 10 MG PO (13:54)
[2019-07-25] MEDS: CHOLECALCIFEROL 1,000 UNIT TABLET 1000 UNITS PO (13:54)
[2019-07-25] MEDS: allopurinoL 100 MG TABLET PO (13:54)
[2019-07-25] MEDS: HEPARIN SODIUM 5,000 UNITS/ML VIAL 5000 UNITS SUB-Q (13:55)
[2019-07-25] MEDS: DOCUSATE SODIUM 100 MG CAPSULE PO (13:55)
[2019-07-25] MEDS: CYANOCOBALAMIN 1,000 MCG TABLET 1000 MCG PO (13:55)
[2019-07-25] MEDS: lisinopriL 5 MG TABLET PO (13:56)
[2019-07-25] MEDS: METOPROLOL SUCCINATE EXT REL 100 MG TABCR 200 MG PO (13:56)
[2019-07-25] MEDS: VITAMIN E 400 UNIT CAPSULE PO (13:57)
[2019-07-25] MEDS: polyethylene glycoL 3350 17 GM POWD.PACK PO (13:57)
[2019-07-25] MEDS: PYRIDOXINE HCL 50 MG TABLET 100 MG PO (13:57)
[2019-07-25] MEDS: SEVELAMER CARBONATE 800 MG TABLET PO (13:58)
[2019-07-25] MEDS: CALCIUM CARBONATE (TUMS) 500 MG (200 MG ELEMENTAL) PO (14:00)
[2019-07-25] MEDS: PREGABALIN 50 MG CAPSULE 150 MG PO (14:00)
--- NOTE | 2019-07-31 04:16 | DS_ITS ---
DATE OF DISCHARGE: 07/25/2019 DISCHARGE ACUTE REHABILITATION DIAGNOSES: Primary rehab impairment category, amputation of the lower extremity with etiological diagnosis of gangrenous of the right foot, resulting in right [id number] amputation. DISCHARGE ACTIVE COMORBID CONDITIONS: Include: 1. Atrial fibrillation with coronary artery disease. 2. Hyperlipidemia. 3. Hypertension. 4. Chronic kidney disease, for which, the patient is on dialysis, and documentation of end-stage renal disease. 5. Prostate enlargement. 6. Osteoarthritis with gout as well and chronic low back as well. 7. Peripheral neuropathy secondary to underlying diabetes mellitus. 8. Obesity. REASON FOR ADMISSION: A 68 years old left-handed male with the past medical history of: 1. End-stage renal disease, for which, he is on dialysis for the last several years. 2. Type 2 diabetes mellitus with hyperlipidemia. 3. Peripheral vascular disease. 4. Renal carcinoma. Presented to [facility] on July 08, 2019, for the evaluation of the right foot wound, which was initially seen as a blister on the bottom of the right foot approximately 4 days prior to the admission. It was noted to have increased redness at the dorsal aspect and black in color. 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 Vascular surgeons were consulted, who suggested the right toe and feet were not salvageable, and recommended right [id number]-[id number] amputation. He was started on IV antibiotics, those were vancomycin and Zosyn. He is scheduled for the surgery on the subsequent day. Nephrologists were consulted because of the end-stage renal disease, who recommended the addition of erythropoietin along with dialysis. He underwent the amputation on July 09, 2019, with Dr. Asad Pemberton. Postoperatively he became anemic and developed pain. His hemoglobin was 8.7. Pain was controlled with the medication. He was continued on the dialysis. He was discharged to Rehab for the continuation of the therapy. LEVEL OF FUNCTION AT THE TIME OF ADMISSION: The patient was independent in eating, required supervision for oral hygiene, substantial assistance for toileting, partial assistance for bathing, supervision for upper body dressing, substantial assistance for lower body dressing, supervision for rolling in the bed, partial assistance for sitting and sit to lying, lying to sitting, substantial assistance for sit to stand, chair transfer, toilet transfer, car transfer. He required setup for the wheelchair for 50 feet or 150 feet. He was unable to do the walking, all the modalities. ANTICIPATED REHABILITATION GOALS AT THE TIME OF ADMISSION: To make him independent eating, oral hygiene, toileting, bathing, upper body dressing, rolling in the bed, sit to lying, lying to sitting. He required only supervision for lower body dressing, sit to stand, and required only setup for the chair transfer, and make him independent for toilet transfer, and setup for the car transfer. Also independent for wheelchair for 50 feet or 150 feet. Rest of the modalities were not applicable. LEVEL OF FUNCTION AT THE TIME OF DISCHARGE: The patient became independent for eating, oral hygiene toileting, rolling in the bed, sit to lying, lying to sitting, sit to stand. Wheelchair for 50 and 150 feet. He required only supervision for bathing and lower body dressing. He required only setup for the upper body dressing, and partial assistance for toilet transfers, supervision for the car transfer. He was unable to do walking. HOSPITAL COURSE: During the hospitalization, he was actively involved in the physical therapy and occupational therapy. He was followed by the monogram operator as well. At the time of discharge, his physic
== END 2019-07-25 14:15 | disposition home health service (06) | DRG 559 ==
PROVIDERS: Internal Medicine Nephrology; Admitting Provider Psychiatry & Neurology Neurology; Visit Provider Psychiatry & Neurology Neurology
DX: Z47.81 Encounter for orthopedic aftercare following surgical amputation (principal); N18.6 End stage renal disease; I12.0 Hypertensive chronic kidney disease with stage 5 chronic kidney disease or end stage renal disease; E11.51 Type 2 diabetes mellitus with diabetic peripheral angiopathy without gangrene; Z89.511 Acquired absence of right leg below knee; D63.1 Anemia in chronic kidney disease; E11.319 Type 2 diabetes mellitus with unspecified diabetic retinopathy without macular edema; E11.42 Type 2 diabetes mellitus with diabetic polyneuropathy; E11.65 Type 2 diabetes mellitus with hyperglycemia; E11.22 Type 2 diabetes mellitus with diabetic chronic kidney disease; E78.5 Hyperlipidemia, unspecified; G89.29 Other chronic pain; H53.8 Other visual disturbances; I48.91 Unspecified atrial fibrillation; I25.10 Atherosclerotic heart disease of native coronary artery without angina pectoris; M54.5 Low back pain; M10.9 Gout, unspecified; M19.90 Unspecified osteoarthritis, unspecified site; N40.0 Benign prostatic hyperplasia without lower urinary tract symptoms; N25.0 Renal osteodystrophy; Z89.512 Acquired absence of left leg below knee; Z79.4 Long term (current) use of insulin; Z99.2 Dependence on renal dialysis; Z87.891 Personal history of nicotine dependence; Z85.528 Personal history of other malignant neoplasm of kidney; Z79.82 Long term (current) use of aspirin
CPT/HCPCS: 36415; 80048; 80069; 82728; 83036; 83540; 83550; 85025; 86706; 87081; 87340; 97110; 97116; 97140; 97162; 97166; 97530; 97535; 97542; A9270; G0257; J1644; J1756; J1815; J7030; Q4081